=== PATIENT | female | born 1955 | race Caucasian/White ===

== ENCOUNTER 2017-12-16 18:20 | Emergency (ER) | payer OTHER ==
[2017-12-16 18:41] VITALS: BP 123/88; PULSE 72; TEMP 98.1; BMI 26.2
--- NOTE | 2017-12-16 19:14 | PDOC ---
History of Present Illness - General History Source: Patient Exam Limitations: No Limitations - History of Present Illness Initial Comments: 12/16/17 19:23 The patient is a 62 year old female with a significant past medical history of arthritis, hypertension, and kidney stones who presents to the emergency department for evaluation of headache, neck stiffness, and right knee pain. The patient reports intermittent episodes of moderate headache and right knee pain after walking into a clear glass door yesterday. The patient reports she felt stunned after colliding with the door, but denies any loss of consciousness. She reports associated right sided neck stiffness. The patient reports an associated symptom of nausea, but denies vomiting. She reports taking Motrin ( [id number]) every 4 hours, last taken at 5pm. Of note, the patient is currently taking Humira. The patient denies chest pain, shortness of breath, dizziness, fevers, chills, nausea, vomiting, diarrhea, and constipation. Denies any other kinds of injury. Allergies: NKDA Social history: Former smoker. No reported alcohol or drug use. PCP: Dr. Nate Quintana ([phone]) <Jazmyn Bliss - Last Filed: 12/16/17 19:24> <Austin Somers - Last Filed: 12/17/17 05:24> - General Chief Complaint: Injury Stated Complaint: WALKED INTO A GLASS WALL Past History <Jazmyn Bliss - Last Filed: 12/16/17 19:24> - Past Medical History COPD: No HTN: Yes Kidney Stones: Yes Psychiatric Problems: Yes - Family Disease History Family Disease History: Heart Disease: Father, Brother ([place] at age 47) - Suicide/Smoking/Psychosocial Hx Smoking Status: Yes Smoking History: Former smoker Have you smoked in the past 12 months: No Number of Cigarettes Smoked Daily: 0 If you are a former smoker, when did you quit?: 2016 Information on smoking cessation initiated: No 'Breaking Loose' booklet given: 02/07/15 Hx Alcohol Use: No Drug/Substance Use Hx: No Substance Use Type: None <Austin Somers - Last Filed: 12/17/17 05:24> - Past Medical History Allergies/Adverse Reactions: Allergies Allergy/AdvReac Type Severity Reaction Status Date / Time No Known Allergies Allergy Verified 12/16/17 18:31 Home Medications: Ambulatory Orders Adalimumab [Humira] 40 mg SQ ASDIR 08/01/15 Ibuprofen [Motrin Ib] 400 mg PO Q6H PRN 12/16/17 Review of Systems - Review of Systems Able to Perform ROS?: Yes Comments:: GENERAL/CONSTITUTIONAL: No fever or chills. No weakness. HEAD, EYES, EARS, NOSE AND THROAT: No change in vision. No ear pain or discharge. No sore throat. CARDIOVASCULAR: No chest pain or shortness of breath. RESPIRATORY: No cough, wheezing, or hemoptysis. GASTROINTESTINAL: (+)Nausea. No vomiting, diarrhea or constipation. GENITOURINARY: No dysuria, frequency, or change in urination. MUSCULOSKELETAL: (+)Right knee pain. (+)Neck stiffness. No joint or muscle swelling. No back pain. SKIN: No rash NEUROLOGIC: (+)Headache. No vertigo, loss of consciousness, or change in strength/sensation. ENDOCRINE: No increased thirst. No abnormal weight change. HEMATOLOGIC/LYMPHATIC: No anemia, easy bleeding, or history of blood clots. ALLERGIC/IMMUNOLOGIC: No hives or skin allergy. <Jazmyn Bliss - Last Filed: 12/16/17 19:24> *Physical Exam - Vital Signs Last Vital Signs Temp Pulse Resp BP Pulse Ox 98.1 F 72 16 123/88 99 12/16/17 18:26 12/16/17 18:26 12/16/17 18:26 12/16/17 18:26 12/16/17 18:26 - Physical Exam Comments: GENERAL: Awake, alert, and fully oriented, in no acute distress HEAD: (+)Tender on forehead. EYES: PERRLA, EOMI, sclera anicteric, conjunctiva clear ENT: Auricles normal inspection, hearing grossly normal, nares patent. NECK: Normal ROM, supple. LUNGS: Breath sounds equal, clear to auscultation bilaterally. No wheezes, and no crackles HEART: Regular rate and rhythm, normal S1 and S2, no murmurs, rubs or gallops ABDOMEN: Soft, nontender. No guarding, no rebound. No masses EXTREMITIES: (+)Tender on right medial proximal tibia. Normal range of motion, no edema. No clubbing or cyanosis. No cords or erythema. NEUROLOGICAL: Cranial nerves II through XII grossly intact. Normal speech, normal gait SKIN: Warm, Dry, normal turgor, no rashes or lesions noted. <Jazmyn Bliss - Last Filed: 12/16/17 19:24> - Vital Signs Last Vital Signs Temp Pulse Resp BP Pulse Ox 98.1 F 72 16 123/88 99 12/16/17 18:26 12/16/17 18:26 12/16/17 18:26 12/16/17 18:26 12/16/17 18:26 <Austin Somers - Last Filed: 12/17/17 05:24> Medical Decision Making - Medical Decision Making 12/17/17 05:23 head trauma--low risk by [place] criteria Some concussion symptoms. Symptomatic mgmt and neuro fu Knee contusion. NSAIDs <Austin Somers - Last Filed: 12/17/17 05:24> *DC/Admit/Observation/Transfer - Attestations Scribe Attestion: Documentation prepared by Jazmyn Bliss, acting as manager medical affairs for Austin Somers MD. <Jazmyn Bliss - Last Filed: 12/16/17 19:24> <Austin Somers - Last Filed: 12/17/17 05:24> Diagnosis at time of Disposition: Concussion Qualifiers: Encounter type: initial encounter Loss of consciousness presence/duration: without LOC Qualified Code(s): S06.0X0A - Concussion without loss of consciousness, initial encounter Head injury Qualifiers: Encounter type: initial encounter Qualified Code(s): S09.90XA - Unspecified injury of head, initial encounter Knee contusion Qualifiers: Encounter type: initial encounter Laterality: right Qualified Code(s): S80.01XA - Contusion of right knee, initial encounter - Discharge Dispostion Disposition: HOME Condition at time of disposition: Good - Referrals Referrals: Eliazar Edwards MD [Staff Physician] - Cristopher Arambula MD [Staff Physician] - - Patient Instructions Printed Discharge Instructions: DI for Closed Head Injury - Post Discharge Activity
== END 2017-12-16 19:23 | disposition home or self-care (01) ==
LOC: FER 18:20
DX: S09.90XA Unspecified injury of head, initial encounter (principal); S06.0X0A Concussion without loss of consciousness, initial encounter; S80.01XA Contusion of right knee, initial encounter; W22.01XA Walked into wall, initial encounter; Y93.89 Activity, other specified; Y92.9 Unspecified place or not applicable; I10 Essential (primary) hypertension; M19.90 Unspecified osteoarthritis, unspecified site; Z87.891 Personal history of nicotine dependence; F99 Mental disorder, not otherwise specified
CPT/HCPCS: 99282-25

== ENCOUNTER 2017-12-22 17:16 | Emergency (ER) | payer OTHER ==
[2017-12-22 17:25] VITALS: BP 146/85; PULSE 64; TEMP 98.3; BMI 26.2
--- NOTE | 2017-12-22 20:08 | PDOC ---
History of Present Illness - General History Source: Patient Exam Limitations: No Limitations - History of Present Illness Initial Comments: 12/22/17 20:31 The patient is a 62 year old female with past medical history of psoriatic arthritis, Kidney stones, and HTN presents to the emergency department s/p a fall. The patient reports around 10:30/11:00 in the morning she was walking outside when she lost balance and fell. The patient is unclear on the details of the incident but states she felt dizzy prior to the incident. The patient reports pain to the left knee, aggravated by flexion and extension of the leg. The patient reports associated symptoms of lightheadedness and a headache, mild relief with Motrin. The patient reports being at the ED 6 days ago s/p a head injury the day prior, the patient was told she sustained a concussions. The patient reports since the head injury the patients been experiencing episodes of intermittent dizziness and lightheadedness. The patient reports associated symptoms of nausea and right neck tenderness. The patient was seen by Dr. Joya who referred the patient to see a neurologist, patient states she hasn t made an appointment to see a neurologist yet. Denies any numbness, tingling or loss of sensation. Denies loss of conscious. Denies fever, chills, chest pain or cough. Allergies: NKDA Social history: Former smoker. No reported alcohol or drug use. PCP: Dr. Nate Quintana 12/22/17 21:42 <Cassidy Sanchez - Last Filed: 12/22/17 21:42> <Zari Osman - Last Filed: 12/23/17 03:51> - General Chief Complaint: Pain, Acute Stated Complaint: LEFT KNEE PAIN Time Seen by Provider: 12/22/17 19:30 Past History <Cassidy Sanchez - Last Filed: 12/22/17 21:42> - Past Medical History COPD: No DVT: No HTN: Yes Kidney Stones: Yes Psychiatric Problems: Yes - Family Disease History Family Disease History: Heart Disease: Father, Brother ([place] at age 47) - Suicide/Smoking/Psychosocial Hx Smoking Status: Yes Smoking History: Former smoker Have you smoked in the past 12 months: No Number of Cigarettes Smoked Daily: 1 If you are a former smoker, when did you quit?: 2016 Information on smoking cessation initiated: No 'Breaking Loose' booklet given: 02/07/15 Hx Alcohol Use: No Drug/Substance Use Hx: No Substance Use Type: None <Zari Osman - Last Filed: 12/23/17 03:51> - Past Medical History Allergies/Adverse Reactions: Allergies Allergy/AdvReac Type Severity Reaction Status Date / Time No Known Allergies Allergy Verified 12/22/17 17:19 Home Medications: Ambulatory Orders Adalimumab [Humira] 40 mg SQ ASDIR 08/01/15 Diclofenac Sodium [Voltaren -] 75 mg PO BID PRN #14 tablet. 12/22/17 Review of Systems - Review of Systems Able to Perform ROS?: Yes Comments:: 12/22/17 20:35 CONSTITUTIONAL: Absent: fever, no chills, no fatigue EYES: Absent: visual changes ENT: Absent: ear pain, no sore throat CARDIOVASCULAR: Absent: chest pain, no palpitations RESPIRATORY: Absent: cough, no SOB GI: Absent: abdominal pain, no nausea, no vomiting, no constipation, no diarrhea GENITOURINARY: Absent: dysuria, no frequency, no hematuria MUSKULOSKELETAL: (+)L. Knee injury with pain. Absent: back pain, no arthralgia, no myalgia SKIN: Absent: rash NEURO: (+) Headache and lightheadedness. <Cassidy Sanchez - Last Filed: 12/22/17 21:42> *Physical Exam - Vital Signs Last Vital Signs Temp Pulse Resp BP Pulse Ox 98.3 F 64 18 146/85 100 12/22/17 17:16 12/22/17 17:16 12/22/17 17:16 12/22/17 17:16 12/22/17 17:16 - Physical Exam Comments: 12/22/17 20:36 GENERAL: The patient is awake, alert, and fully oriented, in no acute distress. HEAD: Normal with no signs of trauma. EYES: Pupils equal, round and reactive to light, extraocular movements intact, sclera anicteric, conjunctiva clear with no pallor. ENT: Ears normal, nares patent, oropharynx clear without exudates. Moist mucous membranes. EXTREMITIES: (+) L. lateral tenderness to the anterior aspect of the knee w/o ligament instability. Point tenderness noted. No pain on stress maneuvers to the left knee. Rest of the extremity exams were normal. Normal range of motion, no edema. No clubbing or cyanosis. No cords, erythema, or tenderness. NEUROLOGICAL: Cranial nerves II through XII grossly intact. Normal speech. PSYCH: Normal mood, normal affect. SKIN: Warm, Dry, normal turgor, no rashes or lesions noted. <Cassidy Sanchez - Last Filed: 12/22/17 21:42> - Vital Signs Last Vital Signs Temp Pulse Resp BP Pulse Ox 98.3 F 64 18 146/85 100 12/22/17 17:16 12/22/17 17:16 12/22/17 17:16 12/22/17 17:16 12/22/17 17:16 <Zari Osman - Last Filed: 12/23/17 03:51> Medical Decision Making - Medical Decision Making Documentation has been prepared under my direction and personally reviewed by me in its entirety. I attest that this documented accurately reflects all work, treatment, procedures and medical decision making performed by me. As noted above, this 62-year-old woman presents with left knee pain after fall earlier today. Exam as noted. X-ray of the left knee shows no evidence of fracture or dislocation. Of note, patient has had intermittent lightheadedness since a fall 1 week ago. She also has had intermittent nausea and mild headache. Neuro exam showed no evidence of focal deficit. Patient did not have noncontrast head CT on initial presentation because she did not lose consciousness and had no serious symptoms. It was strongly advised the patient have noncontrast head CT during this ER visit but she refused. Since the patient is alert without focal neurologic deficits and trauma was one week ago, head CT would likely be low yield for subtle findings on imaging. She has been given neuro follow-up referral by her general medical doctor but has not yet made an appointment. Patient states that she will make an appointment tomorrow morning with . Meanwhile, knee immobilizer placed on the left lower extremity. She should follow-up with orthopedic group within the next 5-7 days. She does not have an orthopedist and referral information for the [facility] provided. Diclofenac 75 mg twice a day to be used as needed for pain and extremity should be elevated with knee iced for the next 2 days. <Zari Osman - Last Filed: 12/23/17 03:51> *DC/Admit/Observation/Transfer <DanielCassidy - Last Filed: 12/22/17 21:42> <Zari Osman Devi - Last Filed: 12/23/17 03:51> Diagnosis at time of Disposition: Left knee sprain Qualifiers: Encounter type: initial encounter Involved ligament of knee: lateral collateral ligament Qualified Code(s): S83.422A - Sprain of lateral collateral ligament of left knee, initial encounter - Discharge Dispostion Disposition: HOME Condition at time of disposition: Stable - Prescriptions Prescriptions: Diclofenac Sodium [Voltaren -] 75 mg PO BID PRN #14 tablet.dr WHITTEN Reason: Pain - Referrals Referrals: Cristopher Arambula MD [Staff Physician] - Call tomorrow Geovanni Morocho MD [Staff Physician] - Call tomorrow - Patient Instructions Printed Discharge Instructions: Knee Sprain Additional Instructions: Ice/elevation left knee for the next 48 hours Diclofenac 75 mg twice a day as needed for pain (take with food) Use knee immobilizer during the day until seen by orthopedist Follow-up with orthopedist([facility]) within the next week; call tomorrow Follow-up with neurologist() as previously advised; call tomorrow
== END 2017-12-22 20:27 | disposition home or self-care (01) ==
LOC: FER 17:16
DX: S83.422A Sprain of lateral collateral ligament of left knee, initial encounter (principal); W18.39XA Other fall on same level, initial encounter; Y93.89 Activity, other specified; Y92.9 Unspecified place or not applicable; I10 Essential (primary) hypertension; Z87.891 Personal history of nicotine dependence
CPT/HCPCS: 73562-TC-LT-FY; 99282-25

== ENCOUNTER 2018-07-08 20:03 | Observation (INO) | payer OTHER ==
--- NOTE | 2018-07-08 20:11 | PDOC ---
History of Present Illness - General History Source: Patient, Family Exam Limitations: No Limitations - History of Present Illness Initial Comments: 07/08/18 20:27 The patient is a 62 year old female presenting with family, presents to the ED complaining of a period of not being able to form new memories today. She reports that she felt fine till around 2pm today when she got of the phone with her son and was unable to remember the conversation. This lasted for a few hours , prompting her to come to the ED. She notes that she was able to remember things that she did throughout the day, such as wake up and eating lunch but it was that small period that she was unable to form new memories that worried her. She reports that she does have a mild headache on the left side of her forehead. She denies any radiation or modifying factors. She denies having a stressful day. The patient denies chest pain, shortness of breath, and dizziness. PAST MEDICAL HISTORY: psoriatic arthritis, Kidney stones, HTN, Anxiety and Depression PAST SURGICAL HISTORY: no significant history FAMILY HISTORY: Heart Disease: Father, Brother ([place] at age 47) SOCIAL HISTORY: Pt lives with family and is employed. MEDICATIONS: reviewed ALLERGIES: As per nursing notes General: No fevers or chills, no weakness, no weight loss HEENT: No change in vision. No sore throat,. No ear pain CardioVascular: No chest pain or shortness of breath Respiratory:No cough, or wheezing. Gastrointestinal: no nausea, vomiting, diarrhea or constipation, No rectal bleeding Genitourinary: No dysuria, hematuria, or frequency Musculoskeletal: No joint or muscle pain or swelling Neurologic: (+) Headache. No vertigo, dizziness or loss of consciousness Psychiatric: nor depression Skin: No rashes or easy bruising Endocrine: no increased thirst or abnormal weight change Allergic: no skin or latex allergy All other systems reviewed and normal General: Well-nourished well-developed individual, no acute distress HEENT: Throat: Normal, tonsils normal, no erythema or exudate Neck: Supple, no meningeal signs, no lymphadenopathy Eyes::Pupils equal reactive and round, extraocular motion intact Chest: Nontender to palpation Cardiac: S1-S2 normal, regular rate and rhythm, no murmurs rubs or gallops Respiratory: Lungs clear to auscultation bilateral Abdomen: Soft, nondistended, normal bowel sounds, nontender to palpation diffusely Extremities: Warm, dry, no cyanosis, clubbing, or edema Skin: No rashes Neuro: Alert and oriented x3, nonfocal exam, grossly intact, normal gait Psych: Normal mood and affect <Stalin Garcia - Last Filed: 07/08/18 20:27> - General History Source: Patient Exam Limitations: No Limitations - History of Present Illness Initial Comments: 07/08/18 20:38 A portion of this note was documented by scribe services under my direction. I have reviewed the details of the note, within reason, and agree with the documentation with the following case summary and management plan written by me. Patient treated in the ED. Nursing notes are reviewed and incorporated into the medical decision-making. Vital signs reviewed. Assessment and plan: This is a 62-year-old female who comes in complaining of 2 hour episode where she was unable to make new memories. Patient said she is now back to her baseline. Patient denies history of similar episodes in the past. Patient denies any associated migraine-type headache but does complain of a mild headache bilateral. Workup initiated including CBC, comp, head CT, EKG, chest x-ray. Chest x-ray is negative for any acute pathology. Chest x-ray reviewed by me EKG shows normal sinus rhythm at a rate of [address] acute [address]-T wave changes, normal EKG interpreted by me Head CT: Labs were normal including normal CBC and chemistries Patient will be admitted to an observation bed. 07/08/18 21:11 07/08/18 21:12 <Nestor Woodard I - Last Filed: 07/08/18 21:24> - General Stated Complaint: STATES SHE HAS DIFFICULTY REMEMBERING WHAT SHE DID Time Seen by Provider: 07/08/18 20:10 Past History <Stalin Garcia - Last Filed: 07/08/18 20:27> - Past Medical History COPD: No DVT: No HTN: Yes Kidney Stones: Yes Psychiatric Problems: Yes - Family Disease History Family Disease History: Heart Disease: Father, Brother ([place] at age 47) - Suicide/Smoking/Psychosocial Hx Smoking Status: Yes Smoking History: Former smoker Have you smoked in the past 12 months: No Number of Cigarettes Smoked Daily: 1 If you are a former smoker, when did you quit?: 2016 'Breaking Loose' booklet given: 02/07/15 Hx Alcohol Use: No Drug/Substance Use Hx: No Substance Use Type: None <Nestor Woodard I - Last Filed: 07/08/18 21:24> - Past Medical History Allergies/Adverse Reactions: Allergies Allergy/AdvReac Type Severity Reaction Status Date / Time No Known Allergies Allergy Verified 07/08/18 20:06 Home Medications: Ambulatory Orders Adalimumab [Humira] 60 mg SQ ASDIR 08/01/15 *Physical Exam - Vital Signs Last Vital Signs Temp Pulse Resp BP Pulse Ox 97.8 F 84 16 127/75 100 07/08/18 20:08 07/08/18 20:08 07/08/18 20:08 07/08/18 20:08 07/08/18 20:08 <Stalin Garcia - Last Filed: 07/08/18 20:27> NIH Stroke Scale - Last Known Well Date/Time & Onset Date Last Known Well: 07/08/18 Time Last Known Well: 19:00 - Initial Evaluation Level of consciousness: Alert Ask patient the month and their age: Answers both correctly Ask patient to open & close eyes; make fist and let go: Obeys both correctly Best gaze (horizontal eye movement): Normal Visual field testing: No visual field loss Facial paresis (Show teeth/raise eyebrows/close eyes tight): Normal symmetrical movement Motor Function: Left Arm: Normal Motor Function: Right Arm: Normal (extends arm 90 (or 45) degrees for 10 seconds without drift Motor Function: Left Leg: Normal (extends leg 30 degrees for 5 seconds without drift) Motor Function: Right Leg: Normal (extends leg 30 degrees for 5 seconds without drift) Limb Ataxia: No ataxia Sensory(Use pinprick test arms,legs,trunk,face/side to side): Normal Best language (Describe picture, name items, read sentences): No Aphasia Dysarthria (read several words): Normal articulation Extinction and Inattention: No abnormality - Total Score NIH Stroke Scale Score: 0 <Nestor Woodard I - Last Filed: 07/08/18 21:24> Moderate Sedation - Procedure Monitoring Vital Signs: Procedure Monitoring Vital Signs Temperature 97.8 F 07/08/18 20:08 Pulse Rate 84 07/08/18 20:08 Respiratory Rate 16 07/08/18 20:08 Blood Pressure 127/75 07/08/18 20:08 O2 Sat by Pulse Oximetry (%) 100 07/08/18 20:08 <Stalin Garcia - Last Filed: 07/08/18 20:27> *DC/Admit/Observation/Transfer - Attestations Scribe Attestion: 07/08/18 20:27 Documentation prepared by Stalin Garcia, acting as medical cash poster for Nestor Woodard MD <Stalin Garcia - Last Filed: 07/08/18 20:27> - Discharge Dispostion Decision to Admit order: Yes <Nestor Woodard I - Last Filed: 07/08/18 21:24> Diagnosis at time of Disposition: TIA (transient ischemic attack) - Discharge Dispostion Condition at time of disposition: Stable - Referrals Referrals: Nate Quintana MD [Primary Care Provider] - - Patient Instructions - Post Discharge Activity
[2018-07-08 20:54] LABS: BASO % 0.3 % (0-2.0); EOS % 1.9 % (0-4.5); HEMATOCRIT 41.6 % (32.4-45.2); HEMOGLOBIN 13.6 GM/dl (10.7-15.3); LYMPH % 30.9 % (8-40); MCH 28.6 pg (25.7-33.7); MCHC 32.7 g/dl (32.0-36.0); MEAN CELL VOLUME 87.4 fl (80-96); MONO % 10.5 % (3.8-10.2); NEUT % 56.4 % (42.8-82.8); PLATELET COUNT 237 K/MM3 (134-434); RBC 4.76 M/mm3 (3.60-5.2); RDW 13.2 % (11.6-15.6); WHITE BLOOD COUNT 5.6 K/mm3 (4.0-10.8)
[2018-07-08 21:05] LABS: ALBUMIN 4.1 g/dl (3.5-5.0); ALK PHOS 86 U/L (32-92); ANION GAP 9 MMOL/L (8-16); BILIRUBIN,TOTAL 0.5 mg/dl (0.2-1.0); BLOOD UREA NITROGEN 21 mg/dl (7-18); CALCIUM 8.8 mg/dl (8.4-10.2); CHLORIDE 98 mmol/L (98-107); CO2 29 mmol/L (22-28); GLUCOSE,RANDOM 95 mg/dl (74-106); POTASSIUM 3.6 mmol/L (3.5-5.1); SGOT/AST 23 U/L (10-42); SGPT/ALT 17 U/L (10-40); SODIUM 136 mmol/L (136-145); TOT PROT 7.6 g/dl (6.4-8.3)
[2018-07-08 21:19] LABS: INR 0.97 (0.82-1.09); PROTHROMBIN TIME (PATIENT) 10.9 SEC (10.2-13.0)
--- NOTE | 2018-07-08 22:12 | HP ---
CHIEF COMPLAINT: Headache, Memory Impairment PCP: Dr. Nate Quintana HISTORY OF PRESENT ILLNESS: This is a 62 y/o woman with a PMHx of: Psoriatic Arthritis, HTN, Anxiety, Depression, Renal Calculi, Cervical Disc Disease. Who presents to the ED with memory impairment, repetitive speech, and FINN x this evening. Patient reports last feeling well at 14:00. Patient reports while speaking to her son she began to have memory impairment, not being able to finish her thoughts. She states" my son told me I keep repeating myself". Patient denies fever, chills, cough, dizziness, SOB, CP, palpitations, AP, N/V/D, constipation, dysuria ER course was notable for: (1) Head CT- neg ICH (2) EKG - NSR no ST or TWI (3) Chest Xray- no acute pathology Recent Travel: None PAST MEDICAL HISTORY: See HPI PAST SURGICAL HISTORY: Childbirth Social History: Smoking: Former Alcohol: None Drugs: None Lives with family, self-employed Family History: Father: [place] Brother: [place] Allergies No Known Allergies Allergy (Verified 07/08/18 20:06) HOME MEDICATIONS: Home Medications Medication Instructions Recorded Adalimumab [Humira] 60 mg SQ ASDIR 08/01/15 REVIEW OF SYSTEMS CONSTITUTIONAL: Absent: fever, chills, diaphoresis, generalized weakness, malaise, loss of appetite, weight change HEENT: Absent: rhinorrhea, nasal congestion, throat pain, throat swelling, difficulty swallowing, mouth swelling, ear pain, eye pain, visual changes CARDIOVASCULAR: Absent: chest pain, syncope, palpitations, irregular heart rate, lightheadedness , peripheral edema RESPIRATORY: Absent: cough, shortness of breath, dyspnea with exertion, orthopnea, wheezing, stridor, hemoptysis GASTROINTESTINAL: Absent: abdominal pain, abdominal distension, nausea, vomiting, diarrhea, constipation, melena, hematochezia GENITOURINARY: Absent: dysuria, frequency, urgency, hesitancy, hematuria, flank pain, genital pain MUSCULOSKELETAL: Absent: myalgia, arthralgia, joint swelling, back pain, neck pain SKIN: Absent: rash, itching, pallor HEMATOLOGIC/IMMUNOLOGIC: Absent: easy bleeding, easy bruising, lymphadenopathy, frequent infections ENDOCRINE: Absent: unexplained weight gain, unexplained weight loss, heat intolerance, cold intolerance NEUROLOGIC: headache, memory impairment Absent: focal weakness or paresthesias, dizziness, unsteady gait, seizure, bladder or bowel incontinence PSYCHIATRIC: Absent: anxiety, depression, suicidal or homicidal ideation, hallucinations. PHYSICAL EXAMINATION Vital Signs - 24 hr 07/08/18 07/08/18 20:08 21:58 Temperature 97.8 F 97.8 F Pulse Rate 84 Pulse Rate [ 68 Left] Respiratory 16 16 Rate Blood Pressure 127/75 Blood Pressure 147/78 [Left] O2 Sat by Pulse 100 98 Oximetry (%) GENERAL: Awake, alert, and fully oriented, in no acute distress. HEAD: Normal with no signs of trauma. EYES: Pupils equal, round and reactive to light, extraocular movements intact, sclera anicteric, conjunctiva clear. No lid lag. EARS, NOSE, THROAT: Ears normal, nares patent, oropharynx clear without exudates. Moist mucous membranes. NECK: Normal range of motion, supple without lymphadenopathy, JVD, or masses. LUNGS: Breath sounds equal, clear to auscultation bilaterally. No wheezes, and no crackles. No accessory muscle use. HEART: Regular rate and rhythm, normal S1 and S2 without murmur, rub or gallop. ABDOMEN: Soft, nontender, not distended, normoactive bowel sounds, no guarding, no rebound, no masses. No hepatomegaly or splenomegaly. MUSCULOSKELETAL: Normal range of motion at all joints. No bony deformities or tenderness. No CVA tenderness. UPPER EXTREMITIES: 2+ pulses, warm, well-perfused. No cyanosis. No clubbing. No peripheral edema. LOWER EXTREMITIES: 2+ pulses, warm, well-perfused. No calf tenderness. No peripheral edema. NEUROLOGICAL: Cranial nerves II-XII intact. Normal speech. Normal gait. PSYCHIATRIC: Cooperative. Good eye contact. Appropriate mood and affect. SKIN: Warm, dry, normal turgor, no rashes or lesions noted, normal capillary refill. Laboratory Results - last 24 hr 07/08/18 07/08/18 07/08/18 20:23 20:32 20:32 WBC 5.6 RBC 4.76 Hgb 13.6 Hct 41.6 MCV 87.4 MCH 28.6 MCHC 32.7 RDW 13.2 Plt Count 237 MPV 9.0 Absolute Neuts (auto) 3.2 Neutrophils % 56.4 Lymphocytes % 30.9 Monocytes % 10.5 H Eosinophils % 1.9 Basophils % 0.3 PT with INR INR Sodium 136 Potassium 3.6 D Chloride 98 Carbon Dioxide 29 H Anion Gap 9 BUN 21 H Creatinine 1.0 Creat Clearance w eGFR 56.56 Random Glucose 95 D Calcium 8.8 Total Bilirubin 0.5 AST 23 D ALT 17 D Alkaline Phosphatase 86 Creatine Kinase Creatine Kinase Index CK-MB (CK-2) Troponin I < 0.03 Total Protein 7.6 Albumin 4.1 07/08/18 07/08/18 20:32 20:45 WBC RBC Hgb Hct MCV MCH MCHC RDW Plt Count MPV Absolute Neuts (auto) Neutrophils % Lymphocytes % Monocytes % Eosinophils % Basophils % PT with INR 10.9 INR 0.97 Sodium Potassium Chloride Carbon Dioxide Anion Gap BUN Creatinine Creat Clearance w eGFR Random Glucose Calcium Total Bilirubin AST ALT Alkaline Phosphatase Creatine Kinase 212 H Creatine Kinase Index 1.1 CK-MB (CK-2) 2.4 Troponin I Total Protein Albumin ASSESSMENT/PLAN: This is a 62 y/o woman with a PMHx of: Psoriatic Arthritis, HTN, Anxiety, Depression, Renal Calculi. Placed in Tele Observation for TIA for further evaluation of their emergent condition. Plan: FEN PO fluids as tolerated Replete lytes prn Low Na Diet DVT ppx OOB SCDs Consider AC if LOS > 48 hrs Dispo: Observation Problem List - Problem (1) TIA (transient ischemic attack) Assessment/Plan: r/o TIA/CVA vs Seizures vs Transient Amnesia Head CT- neg ICH NIHSS 0 Continue cardiac monitoring Appreciate Neurology consult Carotid Doppler in am CBC, BMP, Lipid Panel, TSH in am Swallow Eval Consider MRI Brain, will defer to Neurology Neuro checks Seizure Precautions Fall Precautions Code(s): G45.9 - TRANSIENT CEREBRAL ISCHEMIC ATTACK, UNSPECIFIED (2) HTN (hypertension) Assessment/Plan: Stable Monitor BP Continue home med Monitor renal function Low Na Diet Code(s): I10 - ESSENTIAL (PRIMARY) HYPERTENSION (3) Anxiety and depression Assessment/Plan: Stable Continue Cymbalta Code(s): F41.9 - ANXIETY DISORDER, UNSPECIFIED; F32.9 - MAJOR DEPRESSIVE DISORDER, SINGLE EPISODE, UNSPECIFIED (4) Psoriatic arthritis Assessment/Plan: Stable Patient may use her own Humira inj, due today Code(s): L40.50 - ARTHROPATHIC PSORIASIS, UNSPECIFIED Visit type - Emergency Visit Emergency Visit: Yes ED Registration Date: 07/08/18 Care time: The patient presented to the Emergency Department on the above date and was hospitalized for further evaluation of their emergent condition. - New Patient This patient is new to me today: Yes Date on this admission: 07/08/18 - Critical Care Critical Care patient: No
[2018-07-08 22:14] LABS: PH,URINE 7.5 (4.5-8); URINE APPEARANCE Clear; URINE BILIRUBIN Negative (NEGATIVE); URINE COLOR Yellow; URINE GLUCOSE (UA) Negative (NEGATIVE); URINE KETONE Negative (NEGATIVE); URINE LEUK ESTERASE Negative (NEGATIVE); URINE NITRITE Negative (NEGATIVE); URINE PROTEIN Negative (NEGATIVE); URINE UROBILINOGEN 0.2 (0.2-1.0)
[2018-07-08 23:45] VITALS: BMI 25.8
[2018-07-09] MEDS ORDERED: ADALIMUMAB SQ SCH (01:15)
[2018-07-09 06:34] VITALS: BP 117/60; PULSE 69; TEMP 98.3
[2018-07-09 09:29] LABS: ANION GAP 9 MMOL/L (8-16); BLOOD UREA NITROGEN 17 mg/dl (7-18); CALCIUM 8.7 mg/dl (8.4-10.2); CHLORIDE 100 mmol/L (98-107); CO2 28 mmol/L (22-28); CREATININE 0.9 mg/dl (0.6-1.3); GLUCOSE,RANDOM 113 mg/dl (74-106); MAGNESIUM 2.3 mg/dL (1.8-2.4); PHOSPHOROUS 4.5 mg/dl (2.5-4.6); POTASSIUM 3.4 mmol/L (3.5-5.1); SODIUM 137 mmol/L (136-145)
[2018-07-09 09:39] LABS: BASO % 0.3 % (0-2.0); EOS % 3.1 % (0-4.5); HEMATOCRIT 39.7 % (32.4-45.2); HEMOGLOBIN 13.1 GM/dl (10.7-15.3); LYMPH % 31.8 % (8-40); MCH 28.5 pg (25.7-33.7); MCHC 33.1 g/dl (32.0-36.0); MEAN CELL VOLUME 86.2 fl (80-96); MEAN PLT VOLUME 9.7 fl (7.5-11.1); MONO % 10.7 % (3.8-10.2); NEUT % 54.1 % (42.8-82.8); PLATELET COUNT 191 K/MM3 (134-434); RDW 12.9 % (11.6-15.6)
[2018-07-09 09:46] LABS: CHOLESTEROL 235 mg/dl; HDL CHOLESTEROL 62 mg/dl (29-89); TRIGLYCERIDES 129 mg/dl (35-160)
[2018-07-09] MEDS ORDERED: DULoxetine HCL 30 MG CAPSULE.DR (FP) PO SCH (10:00)
[2018-07-09] MEDS ORDERED: TRIAMTERENE AND HCTZ - 37.5 MG/25 MG CAPSULE PO SCH (10:00)
[2018-07-09 10:14] LABS: INR 1.02 (0.82-1.09); PROTHROMBIN TIME (PATIENT) 11.4 SEC (10.2-13.0)
[2018-07-09 10:42] LABS: LDL CHOLESTEROL (ONLY DFH) 147 mg/dl (0-100)
--- NOTE | 2018-07-09 13:18 | CONSULT ---
Consult - text type - Consultation Consultation Note: NEUROLOGY CONSULTATION is greatly appreciated: This 62 yo RH woman with h/o HTN, depression and Rheumatoid arthritis ( followed by Dr. Deb Garber) is maintained on Humira, HCTZ, trimapterine and cymbalta. Seen by me many years ago for recurrent complaints of "burning and hypersensitivity" in her head moving from side to side. This would occur a few times each month and last 1-2 days. Occ nausea, photophobia. + FH of migraines in her mother. Many years of difficulty sleeping with numbness and aching pains in feet, knees and ankles attributed to arthritisbut not improved on Humira and other treatments. Improved by walking. AM stiffness x 1 hr improved by activity. More recently stiffness and "throbbing" in both hands contributes to sleep difficulties. Yesterday was in [facility] and went out at 10:30 to do errands the precise details of which she recalls today. She arrived home at 2:30 and recalls exactly what she had at lunch. In the afternoon she had a left sided headache and "just wanted to go to bed." Around 4:30 her son called and she could not recall what she did earlier in the day. Today, she can recall and describe the conversation. When her came home and heard this he grew concerned and brought patient to the ED. CT of head (reviewed): Normal Labs: Normal Today the patient feels fine without memory complaints. Family agrees she is fine. BRITTANY: No bruits. Cor reg NEURO: MS/speech: Normal CN II-XII: Normal Motor: No drift or tremor. Normal strength, tone bulk and reflexes. Toes downgoing. +Periodic mov'ts of feet and toes Coord: No FTN dystaxia Sensory: Normal. Romberg neg Gait: Normal IMP: Normal neurological exam Migraine headaches. Yesterday, patient became distracted with a left hemicranial headache. 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 R/O Carpal tunnel, PN, etc. SUGGEST: OK for discharge Neuro f/u for EEG, Headache monitoring and Rx of RLS. Thank you very much, Jose M Parker MD
--- NOTE | 2018-07-09 13:30 | DS ---
Physical Examination Vital Signs: Vital Signs Temperature 98.3 F 07/09/18 06:00 Pulse Rate 69 07/09/18 06:00 Respiratory Rate 18 07/09/18 06:00 Blood Pressure 117/60 07/09/18 06:00 O2 Sat by Pulse Oximetry (%) 97 07/09/18 06:00 Findings/Remarks: Physical Exam: General: NAD, A&Ox3 Lungs: CTA bilaterally Heart: RRR, S1S2 Abd: Soft, non-tender, non-distended. Normoactive bowel sounds Neuro: No focal deficits Labs: CBC, BMP 07/09/18 08:00 07/09/18 08:00 Discharge Summary Reason For Visit: TRANSIENT ISCHEMIC ATTACK Current Active Problems Anxiety and depression (Acute) HTN (hypertension) (Acute) Psoriatic arthritis (Acute) TIA (transient ischemic attack) (Acute) Hospital Course: This is a 62 year old female with PMHx of HTN, depression, rheumatoid arthritis who presented to the ED with memory impairment and headache. Today the patient is able to recall all events and conversations from yesterday. The patient was seen by Dr. Parker (neurology) who recommended discharge home with follow-up in the office for EEG, headache monitoring, and Rx for RLS. Discussed with Dr. Parker who states no evidence of TGA. Likely symptoms 2/2 headache. The patient was given return precautions and sent home. Condition: Improved - Instructions Diet, Activity, Other Instructions: Please return to the ED with new, persistent, or worsening symptoms. Please follow-up with providers as indicated. Referrals: Nate Quintana MD [Primary Care Provider] - 1 Week Jose M Parker MD [Staff Physician] - (Please call Dr. Parker's office tomorrow to schedule a follow-up appointment to be seen within 1 week for an outpatient EEG and headache monitoring as well as further testing for restless limb syndrome. ) Disposition: HOME - Home Medications Comprehensive Discharge Medication List: Ambulatory Orders Adalimumab [Humira] 60 mg SQ ASDIR 08/01/15 This patient is new to me today: Yes Date on this admission: 07/09/18 Emergency Visit: Yes ED Registration Date: 07/08/18 Care time: The patient presented to the Emergency Department on the above date and was hospitalized for further evaluation of their emergent condition. Critical Care patient: No - Discharge Referral Referred to [facility] No
[2018-07-09] MEDS ORDERED: POTASSIUM CHLORIDE TABS 20 MEQ TABLET.ER (FP) PO ONE (14:00)
--- NOTE | 2018-07-10 07:18 | EKG ---
Test Reason : Blood Pressure : / mmHG Vent. Rate : 072 BPM Atrial Rate : 072 BPM P-R Int : 184 ms QRS Dur : 092 ms QT Int : 416 ms P-R-T Axes : 015 028 018 degrees QTc Int : 455 ms NORMAL SINUS RHYTHM NORMAL ECG NO PREVIOUS ECGS AVAILABLE Confirmed by ALYCE PALACIO MD ([id number]) on 07/10/2018 7:18:09 AM Referred By: MICHELLE SELF Confirmed By:ALYCE PALACIO MD
== END 2018-07-09 14:27 | disposition home or self-care (01) ==
LOC: FER 20:03 → INTOOBSV 21:24 → FM/S 21:24
PROVIDERS: ADMIT Internal Medicine; ATTEND Registered Nurse
DX: G45.9 Transient cerebral ischemic attack, unspecified (principal); I10 Essential (primary) hypertension; F41.9 Anxiety disorder, unspecified; F32.9 Major depressive disorder, single episode, unspecified; L40.50 Arthropathic psoriasis, unspecified
CPT/HCPCS: 36415; 70450-TC; 71045-TC-FY; 80048; 80053; 80061; 81003; 82550; 82553; 83036; 83735; 84100; 84443; 84484; 85025; 85610; 93005; 99283-25; G0378

== ENCOUNTER 2020-02-12 10:23 | Inpatient (IN) | payer OTHER ==
[2020-02-12] MEDS ORDERED: SODIUM CHLORIDE 500 ML IV ONE (10:34)
--- NOTE | 2020-02-12 11:05 | PDOC ---
History of Present Illness - General Chief Complaint: Altered Mental Status Stated Complaint: CONFUSION Time Seen by Provider: 02/12/20 10:31 History Source: Patient, Family Exam Limitations: No Limitations - History of Present Illness Initial Comments: 02/12/20 11:03 64-year-old female with history of hypertension, anxiety/depression, psoriatic arthritis brought in by family for episode of confusion/memory loss. Patient was in usual state of good health when she awoke this morning, was last seen normal around 9 AM when her left for work, the patient recalls being outside in the pool house and becoming diaphoretic and confused, called her who arrived there around 930, brought to the emergency department and gradually improving. Patient denies any headache/vision change/speech change/nausea/vomiting/focal weakness, no chest pain/palpitations/shortness of breath, no recent infectious or dehydration complaints. The patient has no physical complaints at this time, feels like her mental status is improving, but still has some gaps in memory in terms of exactly what happened prior to arrival. Patient has no recollection of similar prior events, however on review of the medical record there was an almost identical admission on 07/08/2018, work-up including neurology consultation at that time was unremarkable and the patient was discharged to follow-up for EEG as outpatient. 02/12/20 11:17 subsequent history from : Pt was outside when he left for work. He was concerned at the time that she was sweating from the heat. Pt called him around 9:30am, was speaking clearly and with normal words but wasn't making sense (where are you? who put this here?). he went home and found her on the couch alert and responsive, brought to ED. Pt did mention to him that she had a headache when they left to come to the ED. tPA Exclusion Checklist 0-3hr - Thrombolytic Therapy Candidate Is the patient eligible for Thrombolytic Therapy?: No - Relative Exclusion Criteria 0-3h Stroke severity too mild (non-disabling): Yes - Ineligibility reason(s) Reasons No tPA given: Outside of window - delayed arrival NIH Stroke Scale - Last Known Well Date/Time & Onset Date Last Known Well: 02/12/20 Time Last Known Well: 09:00 - Initial Evaluation Level of consciousness: Alert Ask patient the month and their age: Answers both correctly Ask patient to open & close eyes; make fist and let go: Obeys both correctly Best gaze (horizontal eye movement): Normal Visual field testing: No visual field loss Facial paresis (Show teeth/raise eyebrows/close eyes tight): Normal symmetrical movement Motor Function: Left Arm: Normal Motor Function: Right Arm: Normal (extends arm 90 (or 45) degrees for 10 seconds without drift Motor Function: Left Leg: Normal (extends leg 30 degrees for 5 seconds without drift) Motor Function: Right Leg: Normal (extends leg 30 degrees for 5 seconds without drift) Limb Ataxia: No ataxia Sensory(Use pinprick test arms,legs,trunk,face/side to side): Normal Best language (Describe picture, name items, read sentences): No Aphasia Dysarthria (read several words): Normal articulation Extinction and Inattention: No abnormality - Total Score NIH Stroke Scale Score: 0 Past History - Medical History Allergies/Adverse Reactions: Allergies Allergy/AdvReac Type Severity Reaction Status Date / Time No Known Allergies Allergy Verified 07/08/18 20:06 Home Medications: Ambulatory Orders Adalimumab [Humira Pen] 60 mg SQ ASDIR 08/01/15 Acetaminophen [Tylenol .Regular Strength -] 650 mg PO Q4H PRN tablet 02/14/20 Aspirin [ASA -] 81 mg PO DAILY tab.chew 02/14/20 Atorvastatin Ca [Lipitor] 40 mg PO HS #30 tablet 02/14/20 Lisinopril [Prinivil] 2.5 mg PO DAILY #30 tablet 02/14/20 COPD: No DVT: No HTN: Yes Kidney Stones: Yes Psychiatric Problems: Yes Other medical history: PSORIATIC ARTHRITIS - Psycho-Social/Smoking History Smoking Status: Yes Smoking History: Former smoker Have you smoked in the past 12 months: No Number of Cigarettes Smoked Daily: 1 If you are a former smoker, when did you quit?: 2016 Information on smoking cessation initiated: No 'Breaking Loose' booklet given: 02/07/15 - Substance Abuse Hx (Audit-C & DAST Scrn) How often the patient has a drink containing alcohol: Never Score: In Men: 4 or > Positive; In Women: 3 or > Positive: 0 Screen Result (Pos requires Nsg. Audit-10AR): Negative In the last yr the pt used illegal drug/Rx for NonMed reason: No Score: Yes response is considered Positive: 0 Screen Result (Positive result requires Nsg. DAST-10): Negative Review of Systems - Review of Systems Able to Perform ROS?: Yes Constitutional: No: Chills, Fever, Night Sweats HEENTM: No: Eye Pain, Blurred Vision Respiratory: No: Cough, Shortness of Breath Cardiac (ROS): No: Chest Pain, Lightheadedness, Palpitations ABD/GI: No: Nausea, Vomiting : No: Burning, Dysuria Neurological: Yes: See HPI. No: Headache, Weakness All Other Systems: Reviewed and Negative *Physical Exam - Vital Signs Last Vital Signs Temp Pulse Resp BP Pulse Ox 98.7 F 82 20 158/95 100 02/12/20 10:24 02/12/20 10:24 02/12/20 10:24 02/12/20 10:24 02/12/20 10:24 - Physical Exam 02/12/20 11:06 Vital signs stable, afebrile GENERAL: The patient is awake, alert, oriented to self/place/time (hesitates then says January), in no acute distress other than slightly tearful. HEAD: Normal with no signs of trauma. EYES: PERRL, EOMI, sclera anicteric, conjunctiva clear with no pallor. ENT: Oropharynx clear without exudates. Moist mucous membranes. NECK: Normal range of motion, supple without lymphadenopathy, JVD, or masses. LUNGS: Breath sounds equal, clear to auscultation bilaterally. No wheeze/crackles. HEART: Regular rate and rhythm, normal S1 and S2 without murmur or rub. ABDOMEN: Soft/nontender/nondistended. BS wnl. No guarding or rebound. No palpable masses. No hepatosplenomegaly. EXTREMITIES: Normal range of motion, no edema. 2+ distal pulses. No cords, erythema, or tenderness. NEUROLOGICAL: Mental status: The patient is alert and oriented x3. Cranial nerves: Cranial nerves II through XII are intact Motor: The upper extremities are 5 over 5 in all muscle groups. The lower extremities are 5 over 5 in all muscle groups. No pronator drift. Sensation: Sensation is intact to light touch throughout. Cerebellar: Ktdede-[id number]-jkzy is normal in both upper extremities. Qdbf-lnmo-cbov is normal in both lower extremities. Reflexes: 2+ and symmetric in the upper and lower extremities. Gait: Normal. Heel and toe walking are normal. Tandem gait is normal. PSYCH: Tearful but otherwise normal mood, normal affect. SKIN: Warm, Dry, no rashes or lesions noted. Heart Score/ECG Review #1 ECG reviewed & interpreted by me at: 10:59 General ECG Interpretation: Sinus Rhythm, Normal Rate (71), Normal Intervals (qtc 462), No acute ischemic changes Compared to previous ECG there are: No significant change (c/w 07/08/18) ED Treatment Course - LABORATORY CBC & Chemistry Diagram: 02/13/20 07:37 02/13/20 07:37 - RADIOLOGY Radiology Studies Ordered: Category Date Time Status HEAD CT WITHOUT CONTRAST [CT] Stat CT Scan 02/12/20 10:34 Taken Medical Decision Making - Critical Care Time Total Critical Care Time (minutes): 30 Critical Care Statement: The care of this patient involved high complexity decision making to prevent further life threatening deterioration of the patient's condition and/or to evaluate & treat vital organ system(s) failure or risk of failure. - Medical Decision Making 02/12/20 11:08 64-year-old female with history of hypertension and psoriatic arthritis presents with episode of altered mental status/forgetfulness, now improving and without any associated focal neurological deficits. Vital signs are stable, no associated headache, no other complaints. Similar to prior presentation in 2018, at that time TGA versus TIA versus seizure were considered. Differential is similar, consider heat exhaustion/stroke given very hot conditions outside today, rule out infectious process versus metabolic abnormality versus cardiac event. Stat CT head Labs, urinalysis, EKG IV fluids Monitoring and reassessment 02/12/20 11:53 labs, ct, ekg wnl including trop. UA, CXR pending. Pt feels better, still slightly generally weak. Will monitor on tele for recurrence. 02/12/20 12:41 accepted for tele obs by Dr. Harper, signout given to DESHAUN Brady. Will consider neuro consultation and MRI during admission. Discharge - Discharge Information Problems reviewed: Yes Clinical Impression/Diagnosis: Transient alteration of awareness Condition: Fair Disposition: HOME - Admission Yes - Follow up/Referral - Patient Discharge Instructions - Post Discharge Activity
[2020-02-12 11:30] LABS: BASO % 0.7 % (0-2.0); EOS % 1.9 % (0-4.5); HEMATOCRIT 39.4 % (32.4-45.2); HEMOGLOBIN 13.4 GM/dl (10.7-15.3); LYMPH % 28.2 % (8-40); MCH 29.5 pg (25.7-33.7); MCHC 34.1 g/dl (32.0-36.0); MEAN CELL VOLUME 86.6 fl (80-96); MEAN PLT VOLUME 9.4 fl (7.5-11.1); MONO % 10.6 % (3.8-10.2); NEUT % 58.6 % (42.8-82.8); PLATELET COUNT 175 K/MM3 (134-434); RBC 4.55 M/mm3 (3.60-5.2); RDW 12.2 % (11.6-15.6); WHITE BLOOD COUNT 4.2 K/mm3 (4.0-10.8)
[2020-02-12 11:31] LABS: ACTIVATED PTT 30.8 SECONDS (25.2-36.5)
[2020-02-12 11:36] LABS: INR 1.03 (0.82-1.09); PROTHROMBIN TIME (PATIENT) 11.5 SEC (10.2-13.0)
[2020-02-12 11:38] LABS: ALBUMIN 4.3 g/dl (3.4-5.0); CALCIUM 8.8 mg/dl (8.5-10); POTASSIUM 3.2 mmol/L (3.5-5.1); TOT PROT 7.4 g/dl (6.4-8.2)
[2020-02-12] MEDS ORDERED: ACETAMINOPHEN 325 MG TABLET (FP) PO PRN (12:42)
[2020-02-12] MEDS ORDERED: D5-LR+20 MEQ KCL - 20 MEQ/1,000 ML INFUS.BAG IV SCH (12:45)
[2020-02-12] MEDS ORDERED: POTASSIUM CHLORIDE TABS 10 MEQ TABLET.ER (FP) PO ONE (13:00)
[2020-02-12] MEDS ORDERED: D5-1/2NS+20 MEQ KCL - 20 MEQ/1,000 ML INFUS.BAG IV SCH (15:00)
[2020-02-12 16:16] VITALS: BMI 28.0
--- NOTE | 2020-02-12 18:31 | HP ---
Admitting History and Physical - Past Medical History Cardiovascular: Yes: HTN ...: No Rheumatology: Yes: Other (psoriatic arthritis) - Smoking History Smoking history: Former smoker Have you smoked in the past 12 months: No Aproximately how many cigarettes per day: 1 If you are a former smoker, when did you quit?: 2016 - Alcohol/Substance Use Hx Alcohol Use: No Home Medications - Allergies Allergies/Adverse Reactions: Allergies Allergy/AdvReac Type Severity Reaction Status Date / Time No Known Allergies Allergy Verified 07/08/18 20:06 - Home Medications Home Medications: Ambulatory Orders Adalimumab [Humira Pen] 60 mg SQ ASDIR 08/01/15 Physical Examination Vital Signs: Vital Signs Temperature 97.7 F 02/12/20 15:50 Pulse Rate 70 02/12/20 15:50 Respiratory Rate 18 02/12/20 15:50 Blood Pressure 129/64 02/12/20 15:50 O2 Sat by Pulse Oximetry (%) 99 02/12/20 16:00 Constitutional: Yes: Well Nourished, No Distress, Calm HENT: Yes: Atraumatic Cardiovascular: Yes: Regular Rate and Rhythm Respiratory: Yes: Regular, CTA Bilaterally Gastrointestinal: Yes: Normal Bowel Sounds, Soft Edema: No Neurological: Yes: Alert, Oriented. No: Facial Droop, Tremors Labs: CBC, BMP 02/12/20 11:11 02/12/20 11:11 Imaging - Results Cat Scan: Report Reviewed Problem List - Problems (1) Transient alteration of awareness Assessment/Plan: MRI OF HEAD FOLLOW LABS NEURO CONSULT Code(s): R40.4 - TRANSIENT ALTERATION OF AWARENESS (2) HTN (hypertension) Assessment/Plan: MONITOR OFF MEDS Code(s): I10 - ESSENTIAL (PRIMARY) HYPERTENSION (3) Psoriatic arthritis Code(s): L40.50 - ARTHROPATHIC PSORIASIS, UNSPECIFIED
[2020-02-12 20:27] LABS: CALCIUM 8.2 mg/dl (8.5-10); CREATININE 1.1 mg/dl (0.55-1.3); MAGNESIUM 2.2 mg/dL (1.8-2.4); POTASSIUM 3.8 mmol/L (3.5-5.1)
[2020-02-12] MEDS: DULoxetine HCL 30 MG CAPSULE.DR PO SCH (21:16)
--- NOTE | 2020-02-13 07:20 | PN ---
Progress Note, Physician - Current Medication List Current Medications: Active Medications Acetaminophen (Tylenol -) 650 mg PO Q4H PRN PRN Reason: PAIN Duloxetine HCl (Cymbalta -) 60 mg PO HS [facility] Last Admin: 02/12/20 21:16 Dose: 60 mg Documented by: Potassium Chloride/Dextrose/Sod Cl (D5-1/2ns+20 Meq Kcl -) 20 meq in 1,000 mls @ 75 mls/hr IV ASDIR [facility] Last Admin: 02/12/20 16:22 Dose: 75 mls/hr Documented by: Lisinopril (Prinivil) 2.5 mg PO DAILY [facility] - Objective Vital Signs: Vital Signs Temperature 98.9 F 02/13/20 06:40 Pulse Rate 67 02/13/20 06:40 Respiratory Rate 18 02/13/20 06:40 Blood Pressure 118/62 02/13/20 06:40 O2 Sat by Pulse Oximetry (%) 99 02/13/20 06:40 Neck: Yes: Supple Cardiovascular: Yes: Regular Rate and Rhythm Respiratory: Yes: Regular, CTA Bilaterally Gastrointestinal: Yes: Normal Bowel Sounds, Soft. No: Tenderness Neurological: Yes: Alert, Oriented Labs: CBC, BMP 02/12/20 11:11 02/12/20 20:00 INR, PTT INR 1.03 (0.82-1.09) 02/12/20 11:13 Problem List - Problems (1) Transient alteration of awareness Assessment/Plan: MRI OF HEAD FOLLOW LABS NEURO CONSULT Code(s): R40.4 - TRANSIENT ALTERATION OF AWARENESS (2) HTN (hypertension) Assessment/Plan: MONITOR On altace 2.5 Code(s): I10 - ESSENTIAL (PRIMARY) HYPERTENSION (3) Psoriatic arthritis Code(s): L40.50 - ARTHROPATHIC PSORIASIS, UNSPECIFIED
[2020-02-13 07:51] LABS: HEMATOCRIT 37.9 % (32.4-45.2); MCH 29.4 pg (25.7-33.7); MCHC 34.3 g/dl (32.0-36.0); MEAN CELL VOLUME 85.9 fl (80-96); MEAN PLT VOLUME 8.9 fl (7.5-11.1); PLATELET COUNT 159 K/MM3 (134-434); RBC 4.41 M/mm3 (3.60-5.2); RDW 12.2 % (11.6-15.6); WHITE BLOOD COUNT 3.8 K/mm3 (4.0-10.8)
[2020-02-13 08:16] LABS: CALCIUM 8.4 mg/dl (8.5-10); CREATININE 0.9 mg/dl (0.55-1.3)
--- NOTE | 2020-02-13 09:16 | EKG ---
Test Reason : Blood Pressure : / mmHG Vent. Rate : 071 BPM Atrial Rate : 071 BPM P-R Int : 176 ms QRS Dur : 098 ms QT Int : 426 ms P-R-T Axes : 070 038 020 degrees QTc Int : 462 ms NORMAL SINUS RHYTHM NORMAL ECG WHEN COMPARED WITH ECG OF 08-JUL-2018 20:52, NO SIGNIFICANT CHANGE WAS FOUND Confirmed by MD JONY, JAD ([id number]) on 02/13/2020 9:16:02 AM Referred By: PILAR MARTINEZ Confirmed By:JAD BORGES MD
[2020-02-13] MEDS ORDERED: ALPRAZolam 1 MG TABLET PO PRN ×2 (09:24→09:36)
[2020-02-13] MEDS: LISINOPRIL 5 MG TABLET (FP) PO SCH (09:48)
--- NOTE | 2020-02-13 11:48 | CONSULT ---
Consult - text type - Consultation Consultation Note: NEUROLOGY CONSULTATION is greatly appreciated: This 64 yo RH m, woman with h/o HTN and Chol is maintained on atorvastatin, Lisinopril (2.5 mg), and triampterine. Occassional c/o lightheadedness with rapid standing. Yesterday AM began to "pull weeds" at 8 AM without breakfast or hydration. Then she began to mow the lawn but didn't finish and left mower outside but turned off. Called her at 9:30, confused. He arrived home and found her dressed in a dress (she was gardening in shorts and a bud) and confused. Pt still has no recollection of entering the house, calling her or changing her clothes. She recalls arriving in ER, CT scan , and all events since then. A very similar event occured last June. CT of head (reviewed): Normal MRI of Brain ( reviewed but not yet reported): Normal BRITTANY: BP 118/62. Yesterday had BP supine 138/68 -> 124/71 standing No external head trauma. No carotid bruits. Cor reg (80's0 NEURO: MS/Speech NORMAL! Recalls 3 of 3 @ 5 mins. No frontal release. CN II-XII: Normal Motor: No drift or tremor. Normal strength, tone and bulk. Normal reflexes. Toes downgoing. Coord: No FTN dystaxia Sensory: Normal. Romberg Neg Gait: Normal including tandem. IMP: Normal Neurological exam including cognition Transient Global Amnesia (TGA)- probably recurrent. Probably due to hypotension and transient cerebral hypoperfusion. SUGGEST: Follow orthostatic BP's. Telemetry/ Halter Decrease BP Meds if hypotensive. Keep well hydrated Neuro F/U/ EEG. Thank you very much, Jose M Parker MD
--- NOTE | 2020-02-13 15:03 | ECHO ---
Version: 1 Name: NEPTALI LYONS Exam: Adult Echocardiogram Study Date: 02/13/2020, 2:16 PM Age: 64 Years MMode/2D Measurements & Calculations IVSd: 1.06 cm LVIDs: 2.35 cm LVIDd: 4.0 cm LVPWd: 0.97 cm LVOT diam: 2.00 cm Ao root diam: 2.7 cm LA dimension: 3.0 cm Doppler Measurements & Calculations MV E max lambert: 111.8 cm/sec MV A max lambert: 88.5 cm/sec MV E/A: 1.26 Ao max P.4 mmHg Ao V2 max: 126.9 cm/sec Procedure The study was technically limited with all images being suboptimal in quality. Left Ventricle The left ventricular size, thickness and function are normal. Ejection Fraction = 65%. Left Ventricu lar Filling pattern is normal for age. Right Ventricle The right ventricle is normal in size and function. Atria Normal left and right atrial size and function. Mitral Valve The mitral valve leaflets appear normal. There is no evidence of stenosis, fluttering, or prolapse. There is trace mitral regurgitation. Tricuspid Valve The tricuspid valve is not well visualized, but is grossly normal. No tricuspid regurgitation. Aortic Valve The aortic valve is normal in structure and function. Pulmonic Valve The pulmonic valve is not well visualized. Great Vessels The aortic root is normal size. Normal aortic arch, descending and ascending aorta. Pericardium/Pleura There is no pericardial effusion. Summary Statements The study was technically limited with all images being suboptimal in quality. The left ventricular size, thickness and function are normal Ejection Fraction = 65%. Left Ventricular Filling pattern is normal for age. The right ventricle is normal in size and function. Normal left and right atrial size and function. The mitral valve leaflets appear normal. There is no evidence of stenosis, fluttering, or prolapse. There is trace mitral regurgitation. The tricuspid valve is not well visualized, but is grossly normal. No tricuspid regurgitation. The aortic valve is normal in structure and function. The pulmonic valve is not well visualized. The aortic root is normal size. Normal aortic arch, descending and ascending aorta There is no pericardial effusion. Paul Vernon 02/13/2020, 3:02 PM Ordering Physician: Darrell Harper Performed By: Sobia Nick
[2020-02-13] MEDS: DULoxetine HCL 30 MG CAPSULE.DR PO SCH (21:46)
[2020-02-13] MEDS ORDERED: ATORVASTATIN CA 20 MG TABLET (FP) PO SCH (22:00)
[2020-02-13] MEDS ORDERED: ASPIRIN 325 MG ENTERIC COATED TABLET (FP) PO ONE ×2 (22:03→22:30)
[2020-02-13] MEDS ORDERED: ATORVASTATIN CA 40 MG TABLET (FP) PO SCH (22:04)
[2020-02-13] MEDS ORDERED: ASPIRIN 325 MG TABLET ONE (22:26)
[2020-02-14] MEDS ORDERED: PT OWN MED DRAWER 7, Y5N ONE (09:13)
[2020-02-14] MEDS: LISINOPRIL 5 MG TABLET (FP) PO SCH (09:28)
[2020-02-14] MEDS ORDERED: ASPIRIN 81 MG CHEWABLE TABLETS PO SCH (10:00)
[2020-02-14 14:33] VITALS: BP 126/62; PULSE 60; TEMP 97.9
--- NOTE | 2020-02-14 15:29 | DS ---
Physical Examination Vital Signs: Vital Signs Temperature 97.9 F 02/14/20 14:00 Pulse Rate 60 02/14/20 14:00 Respiratory Rate 18 02/14/20 14:00 Blood Pressure 126/62 02/14/20 14:00 O2 Sat by Pulse Oximetry (%) 99 02/14/20 14:00 Cardiovascular: Yes: Regular Rate and Rhythm Respiratory: Yes: Regular, CTA Bilaterally Gastrointestinal: Yes: Normal Bowel Sounds, Soft. No: Tenderness Neurological: Yes: Alert, Oriented Labs: CBC, BMP 02/13/20 07:37 02/13/20 07:37 Discharge Summary Problems reviewed: Yes Reason For Visit: TRANSIENT ALTERATION OF AWARENESS Current Active Problems Transient alteration of awareness (Acute) Hospital Course: - Problems (1) Transient alteration of awareness Assessment/Plan: MRI OF HEAD--acute/subacute cva--microvascular changes carotid--mild plaque lipitor/asa NEURO CONSULT Noted Code(s): R40.4 - TRANSIENT ALTERATION OF AWARENESS (2) HTN (hypertension) Assessment/Plan: MONITOR On altace 2.5 Code(s): I10 - ESSENTIAL (PRIMARY) HYPERTENSION (3) Psoriatic arthritis per rheumotology Code(s): L40.50 - ARTHROPATHIC PSORIASIS, UNSPECIFIED Condition: Fair - Instructions Referrals: Nate Quintana MD [Staff Physician] - 1 Week Disposition: HOME - Home Medications Comprehensive Discharge Medication List: Ambulatory Orders Adalimumab [Humira Pen] 60 mg SQ ASDIR 08/01/15 Acetaminophen [Tylenol .Regular Strength -] 650 mg PO Q4H PRN tablet 02/14/20 Aspirin [ASA -] 81 mg PO DAILY tab.chew 02/14/20 Atorvastatin Ca [Lipitor] 40 mg PO HS #30 tablet 02/14/20 Lisinopril [Prinivil] 2.5 mg PO DAILY #30 tablet 02/14/20
== END 2020-02-14 17:00 | disposition home or self-care (01) | DRG 884 ==
LOC: FER 10:23 → FM/S 12:19 → OBSVTOIN 02-14 06:50
PROVIDERS: ADMIT Family Medicine; ATTEND Family Medicine
DX: R40.4 Transient alteration of awareness (principal); G45.4 Transient global amnesia; I10 Essential (primary) hypertension; L40.50 Arthropathic psoriasis, unspecified; F41.9 Anxiety disorder, unspecified
CPT/HCPCS: 36415; 70450-TC; 70551-TC; 71045-TC-FY; 80048; 80053; 80061; 81003; 82550; 82607; 83036; 83735; 84443; 84484; 85025; 85027; 85610; 85730; 93005; 93306-TC; 93880-TC; 97116-GP; 97161-GP; 99291; G0378; U0003

== ENCOUNTER 2020-04-14 20:31 | Emergency (ER) | payer OTHER ==
[2020-04-14 20:38] VITALS: BP 139/76; PULSE 74; TEMP 98; BMI 27.1
--- OUTSIDE RECORDS SUMMARY | 2020-04-14 21:18 | XMS ---
:1955 Author Organization [facility] Care Team Providers Name Role Phone Jigar Camarillo Unavailable Androne, C Unavailable Androne, C Unavailable Androne, C Unavailable Androne, C Unavailable Androne, C Unavailable Androne, C Unavailable Androne, C Unavailable MD Kinsey Unavailable Unavailable Re-disclosure Warning The records that you are about to access may contain information from federally- assisted alcohol or drug abuse programs. If such information is present, then the following federally mandated warning applies: This information has been disclosed to you from records protected by federal confidentiality rules (42 CFR part 2). The federal rules prohibit you from making any further disclosure of this information unless further disclosure is expressly permitted by the written consent of the person to whom it pertains or as otherwise permitted by 42 CFR part 2. A general authorization for the release of medical or other information is NOT sufficient for this purpose. The Federal rules restrict any use of the information to criminally investigate or prosecute any alcohol or drug abuse patient.The records that you are about to access may contain highly sensitive health information, the redisclosure of which is protected by Article 27-F of the [facility] Public Health law. If you continue you may haveaccess to information: Regarding HIV / AIDS; Provided by facilities licensed or operated by the [facility] Office of Mental Health; or Provided by the [facility] Office for People With Developmental Disabilities. If such information is present, then the following [facility] mandated warning applies: This information has been disclosed to you from confidential records which are protected by state law. State law prohibits you from making any further disclosure of this information without the specific written consent of the person to whom it pertains, or as otherwise permitted by law. Any unauthorized further disclosure in violation of state law may result in a fine or residential sentence or both. A general authorization for the release of medical or other information is NOT sufficient authorization for further disclosure. Allergies and Adverse Reactions Type Description Substance Reaction Status Data Source(s ) Drug allergy No Known Allergies No Known NO KNOWN ALLERG Cammy Bee Allergies Hospital Encounters Encounter Providers Location Date Indications Data Source(s ) Attender: Jigar 02/28/2020 [facility] ([facility] 12:00:00 AM EDT Medical, ) Office Attender: Jigar Camarillo 02/28/2020 12:00:00 AM EDT [facility] ([facility], ) Office Attender: Jigar Camarillo 02/28/2020 12:00:00 AM EDT [facility] ([facility], ) Office Attender: Jigar Camarillo 02/28/2020 12:00:00 AM EDT [facility] ([facility], ) Office Attender: Jigar Camarillo 02/28/2020 12:00:00 AM EDT [facility] ([facility], ) Office Emergency Attender: Alfredo 11/13/2018 10:36:00 [facility] AD PAINCammy MD PM EDT - 11/14/2018 [facility] 02:01:00 AM EDT [facility], [facility] Immunizations Vaccine Date Status Description Data Source(s) IIV3. This is one of 04/20/2017 completed [facility] (Maulik's two codes replacing CVX 12:00:00 AM EDT [facility]) 15, which is being retired. Medications Medication Brand Start Product Dose Route Administrative Pharmacy [facility] Indications Reaction Description Data Name Date Form Instructions Instructions Source(s) Hydrochloro HYDROC 12/24/ TABLET 30 complet HYDR OCHLOROT [facility] (St thiazide 25 HLOROT 2020 ed HIAZIDE-TRI A [facility] MG / HIAZID 12:00: MTERENE Medical, Triamterene E-TRIA 00 AM PC) 37.5 MG MTEREN EDT Oral Tablet E:3108 HYDROCHLORO 12 THIAZIDE-TR IAMTERENE:3 32856 duloxetine DULOXE 11/18/ DELAYED 30 complet DULO XETINE [facility] (St 60 MG CLIF:5 2020 RELEASE ed Benjaímn's Delayed 94396 12:00: CAPSULE Medica l, Release 00 AM PC) Oral EDT Capsule DULOXETINE: 932457 Clobetasol CLOBET 11/18/ GEL 1 complet CLOBETA MCKENNA [facility] (St Propionate ASOL 2020 ed TOPICAL Benjam[facility]'s 0.0005 TOPICA 12:00: Medical, MG/MG L:8614 00 AM PC) Topical Gel 34 EDT CLOBETASOL TOPICAL:861 434 Clobetasol CLOBET 04/25/ GEL 1 complet CLOBETA MCKENNA [facility] (St Propionate ASOL 2019 ed PROPIONATE Pravin n's 0.0005 PROPIO 12:00: Medical, MG/MG MEGHANA:8 00 AM PC) Topical Gel 63658 EDT CLOBETASOL PROPIONATE: 328070 0.8 ML HUMIRA complet HUMIRA MEDG EN (St adalimumab :42287 2018 ed Benjam[facility]'s 50 MG/ML 5 12:00: Medical, Prefilled 00 AM PC) Syringe EDT [Humira] HUMIRA:[id number] Insurance Providers Payer name Policy type Policy ID Covered Covered democrat's Policy P adela / Coverage democrat ID relationship to Tamayo Inf ormation type tamayo GYPSY [id number] SP [id number] 1 HEALTH PLANS GYPSY (O) [id number] GYPSY [id number] PT [id number] 1 HEALTH PLAN O GYPSY [id number] SP [id number] 1 HEALTH PLANS ALEK CROSS [id number] PT [id number] [facility] LIANG [id number] PT [id number] OTHER GYPSY [id number] PT [id number] HEALTH PLAN O ORTHONET [id number] SP [id number] Problems, Conditions, and Diagnoses Code Display Name Description Problem Type Effective Data Dates Source(s) E87.1 Hypo-osmolality HYPO-OSMOLALITY Problem 02/28/2020 [facility] (St and hyponatremia AND HYPONATREMIA 12:00:00 AM [facility], ) E78.5 Hyperlipidemia, HYPERLIPIDEMIA, Problem 02/28/2020 MED[facility] EN (St unspecified UNSPECIFIED 12:00:00 AM [facility], ) D72.819 Decreased white DECREASED WHITE Problem 02/28/2020 MED[facility] EN (St blood cell count, BLOOD CELL COUNT, 12:00:00 AM [facility] unspecified UNSPECIFIED [facility], ) R40.4 Transient TRANSIENT Problem 02/28/2020 [facility] (St alteration of ALTERATION OF 12:00:00 AM [facility] awareness AWARENESS 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, ) J32.9 Chronic sinusitis, CHRONIC SINUSITIS, Problem 9 [facility] (St unspecified UNSPECIFIED 12:00:00 AM [facility], ) J01.90 Acute sinusitis, ACUTE SINUSITIS, Problem 11/01/2018 ME DGEN (St unspecified UNSPECIFIED 12:00:00 AM [facility], ) Z71.89 Other specified OTHER SPECIFIED Problem 07/19/2018 MED[facility] EN (St counseling COUNSELING 12:00:00 AM [facility], ) R39.89 Other symptoms and OTHER SYMPTOMS AND Problem 8 [facility] (St signs involving SIGNS INVOLVING 12:00:00 AM [facility] the genitourinary THE GENITOURINARY T [facility], ) system SYSTEM I10 Essential ESSENTIAL Problem 02/24/2018 [facility] (St (primary) (PRIMARY) 12:00:00 AM [facility] hypertension HYPERTENSION EDT Medical, P C) R51 Headache HEADACHE Problem 12/20/2017 [facility] (St 12:00:00 AM [facility] EDT Medical, ) M54.2 Cervicalgia CERVICALGIA Problem 12/20/2017 [facility] (St 12:00:00 [facility], ) H53.9 Unspecified visual UNSPECIFIED VISUAL Problem 8 [facility] (St disturbance DISTURBANCE 12:00:00 AM [facility], ) L40.59 Other psoriatic OTHER PSORIATIC Problem 12/20/2017 MED[facility] EN (St arthropathy ARTHROPATHY 12:00:00 AM [facility], ) S09.8XXS Other specified OTHER SPECIFIED Problem 12/20/2017 MED[facility] (St injuries of head, INJURIES OF HEAD, 12:00:00 AM [facility] sequela SEQUELA EDT Medical, PC) S06.0X0D Concussion without CONCUSSION WITHOUT Problem 8 [facility] (St loss of LOSS OF 12:00:00 AM [facility] consciousness, CONSCIOUSNESS, EDT Medica l, ) subsequent SUBSEQUENT encounter ENCOUNTER Z76.0 Encounter for ENCOUNTER FOR Problem 12/05/2017 [facility] ( St issue of repeat ISSUE OF REPEAT 12:00:00 AM [facility] prescription PRESCRIPTION EDT Medical, P C) R51 Headache R51 Diagnosis 11/13/2018 [facility] 11:00:00 PM Hospital EDT E87.1 Hypo-osmolality E87.1 Diagnosis 11/13/2018 [facility] and hyponatremia 11:00:00 PM Hospita l EDT R20.2 Paresthesia of R20.2 Diagnosis 11/13/2018 [facility] 11:00:00 PM Hospital EDT Surgeries/Procedures Procedure Description Date Indications Data Source(s) OFFICE OUTPATIENT 02/28/2020 [facility] ([facility] VISIT 25 MINUTES 12:00:00 AM Medical, PC ) EDT Documentation of 02/28/2020 [facility] ([facility] current medications 12:00:00 AM Medical, PC) (procedure) EDT Documentation of 11/19/2019 [facility] ([facility] current medications 12:00:00 AM Medical, PC) (procedure) EDT Documentation of 11/19/2019 [facility] ([facility] current medications 12:00:00 AM Medical, PC) (procedure) EDT Documentation of 11/19/2019 [facility] ([facility] current medications 12:00:00 AM Medical, PC) (procedure) EDT Documentation of 11/19/2019 [facility] ([facility] current medications 12:00:00 AM Medical, PC) (procedure) EDT OFFICE OUTPATIENT 11/19/2019 [facility] ([facility] VISIT 15 MINUTES 12:00:00 AM Medical, PC ) EDT Documentation of 11/29/2018 [facility] ([facility] current medications 12:00:00 AM Medical, PC) (procedure) EDT Documentation of 11/29/2018 [facility] ([facility] current medications 12:00:00 AM Medical, PC) (procedure) EDT Documentation of 11/29/2018 [facility] ([facility] current medications 12:00:00 AM Medical, PC) (procedure) EDT Documentation of 11/29/2018 [facility] ([facility] current medications 12:00:00 AM Medical, PC) (procedure) EDT Documentation of 11/29/2018 [facility] ([facility] current medications 12:00:00 AM Medical, PC) (procedure) EDT Documentation of 11/29/2018 [facility] ([facility] current medications 12:00:00 AM Medical, PC) (procedure) EDT Documentation of 11/29/2018 [facility] ([facility] current medications 12:00:00 AM Medical, PC) (procedure) EDT Documentation of 11/29/2018 [facility] ([facility] current medications 12:00:00 AM Medical, PC) (procedure) EDT OFFICE OUTPATIENT 11/29/2018 [facility] ([facility] VISIT 15 MINUTES 12:00:00 AM Medical, PC ) EDT Computed tomography of Computed tomography 11/13/2018 [facility] head without contrast of head without 12:00:00 AM Hos pital contrast EDT Documentation of 11/01/2018 [facility] ([facility]ik's current medications 12:00:00 AM Medical, PC) (procedure) EDT Documentation of 11/01/2018 [facility] ([facility] current medications 12:00:00 AM Medical, PC) (procedure) EDT Documentation of 11/01/2018 [facility] ([facility] current medications 12:00:00 AM Medical, PC) (procedure) EDT Documentation of 11/01/2018 [facility] ([facility] current medications 12:00:00 AM Medical, PC) (procedure) EDT OFFICE OUTPATIENT 11/01/2018 [facility] ([facility] VISIT 15 MINUTES 12:00:00 AM Medical, PC ) EDT Documentation of 07/19/2018 [facility] ([facility] current medications 12:00:00 AM Medical, PC) (procedure) EST Documentation of 07/19/2018 [facility] ([facility] current medications 12:00:00 AM Medical, PC) (procedure) EST Documentation of 07/19/2018 [facility] ([facility] current medications 12:00:00 AM Medical, PC) (procedure) EST Documentation of 07/19/2018 [facility] ([facility] current medications 12:00:00 AM Medical, PC) (procedure) EST Documentation of 07/19/2018 [facility] ([facility] current medications 12:00:00 AM Medical, PC) (procedure) EST Documentation of 07/19/2018 [facility] ([facility] current medications 12:00:00 AM Medical, PC) (procedure) EST Documentation of 07/19/2018 [facility] ([facility] current medications 12:00:00 AM Medical, PC) (procedure) EST OFFICE OUTPATIENT 07/19/2018 [facility] ([facility] VISIT 15 MINUTES 12:00:00 AM Medical, PC ) EST Documentation of 02/24/2018 [facility] ([facility] current medications 12:00:00 AM Medical, PC) (procedure) EDT Documentation of 02/24/2018 [facility] ([facility] current medications 12:00:00 AM Medical, PC) (procedure) EDT Documentation of 02/24/2018 [facility] ([facility]ik's current medications 12:00:00 AM Medical, PC) (procedure) EDT Documentation of 02/24/2018 [facility] ([facility]ik's current medications 12:00:00 AM Medical, PC) (procedure) EDT Documentation of 02/24/2018 [facility] (Ma[facility]ik's current medications 12:00:00 AM Medical, PC) (procedure) EDT Documentation of 02/24/2018 [facility] ([facility] current medications 12:00:00 AM Medical, PC) (procedure) EDT OFFICE OUTPATIENT 02/24/2018 [facility] ([facility]'s VISIT 15 MINUTES 12:00:00 AM Medical, PC ) EDT Documentation of 12/20/2017 [facility] ([facility] current medications 12:00:00 AM Medical, PC) (procedure) EDT Documentation of 12/20/2017 [facility] ([facility] current medications 12:00:00 AM Medical, PC) (procedure) EDT SCREENING TEST VISUAL 12/20/2017 [facility] ([facility] ACUITY QUANTITATIVE 12:00:00 AM Medical, PC) BILAT EDT Documentation of 12/05/2017 [facility] ([facility] current medications 12:00:00 AM Medical, PC) (procedure) EDT Documentation of 12/05/2017 [facility] ([facility] current medications 12:00:00 AM Medical, PC) (procedure) EDT Documentation of 12/05/2017 [facility] ([facility] current medications 12:00:00 AM Medical, PC) (procedure) EDT Documentation of 12/05/2017 [facility] ([facility]'s current medications 12:00:00 AM Medical, PC) (procedure) EDT Documentation of 12/05/2017 [facility] ([facility]ik's current medications 12:00:00 AM Medical, PC) (procedure) EDT Documentation of 12/05/2017 [facility] (Ma[facility]ik's current medications 12:00:00 AM Medical, PC) (procedure) EDT Documentation of 12/05/2017 [facility] ([facility] current medications 12:00:00 AM Medical, PC) (procedure) EDT Documentation of 12/05/2017 [facility] (Ma[facility]ik's current medications 12:00:00 AM Medical, PC) (procedure) EDT Documentation of 12/05/2017 [facility] ([facility] current medications 12:00:00 AM Medical, PC) (procedure) EDT Documentation of 12/05/2017 [facility] (Ma[facility]ik's current medications 12:00:00 AM Medical, PC) (procedure) EDT OFFICE OUTPATIENT 12/05/2017 [facility] ([facility] VISIT 15 MINUTES 12:00:00 AM Medical, PC ) EDT Results ID Date Data Source [id number] 02/12/2020 12:25:00 PM EDT [facility] Name Value Range Interpretation Description Data Sup porting Code Source(s) Document(s ) SARS [facility] coronavirus 2 RNA This lab was ordered by HANY ignacio [facility] and reported by [facility]. ID Date Data Source [id number] 11/14/2018 12:01:00 AM [facility] Value Range Interpretation Description Data Sup porting Code Source(s) Document(s ) Aspartate 19 U/L 10-48 AST [facility] aminotransferase [facility] [Enzymatic Hospital activity/volume] in Serum or Plasma ID Date Data Source [id number] 11/14/2018 12:01:00 AM [facility] Value Range Interpretation Description Data Sup porting Code Source(s) Document(s ) Alanine 11 U/L 8-35 ALANINE [facility] aminotransferase TRANSFERASE [facility] [Enzymatic Hospital activity/volume] in Serum or Plasma ID Date Data Source [id number] 11/14/2018 12:01:00 AM [facility] Value Range Interpretation Description Data Sup porting Code Source(s) Document(s ) Alkaline 80 U/L 41-147 ALKALINE [facility] phosphatase PHOSPHATASE Hospital [Enzymatic activity/volum e] in Serum or Plasma ID Date Data Source [id number] 11/14/2018 12:01:00 AM [facility] Value Range Interpretation Description Data Sup porting Code Source(s) Document(s ) Bilirubin. 0.4 mg/dL 0.3-1.2 TOTAL [facility] total BILIRUBIN Hospital [Mass/volu me] in Serum or Plasma ID Date Data Source [id number] 11/14/2018 12:01:00 AM [facility] Value Range Interpretation Description Data Sup porting Code Source(s) Document(s ) Albumin/Gl 1.3 1.0-2.1 ALBUMIN/GLOBULI [facility] obulin N RATIO Hospital [Mass Ratio] in Serum or Plasma ID Date Data Source [id number] 11/14/2018 12:01:00 AM [facility] Name Value Range Interpretation Description Data Sup porting Code Source(s) Document(s ) Albumin 4.1 g/dL 3.4-4.8 ALBUMIN [facility] [Mass/volum Hospital e] in Serum or Plasma ID Date Data Source [id number] 11/14/2018 [facility] Name Value Range Interpretation Description Data Sup porting Code Source(s) Document(s ) Protein 7.3 g/dL 5.7-8.2 TOTAL PROTEIN [facility] [Mass/volum Hospital e] in Serum or Plasma ID Date Data Source [id number] 11/14/2018 12:01:00 AM [facility] Value Range Interpretation Description Data Sup porting Code Source(s) Document(s ) Calcium 8.6 mg/dL 8.3-10.6 CALCIUM [facility] [Mass/volum Hospital e] in Serum or Plasma ID Date Data Source [id number] 11/14/2018 12:01:00 AM [facility] Value Range Interpretation Description Data Sup porting Code Source(s) Document(s ) Urea 26.7 6.0-20.0 Above high normal BUN/CREATININE [facility] nitrogen/C [facility] [Mass Ratio] in Serum or Plasma ID Date Data Source [id number] 11/14/2018 12:01:00 AM [facility] Name Value Range Interpretation Description Data Sup porting Code Source(s) Document(s ) Creatinine 0.9 0.6-1.1 CREATININE [facility] [Mass/volume] mg/dL Hospital in Serum or Plasma ID Date Data Source [id number] 11/14/2018 12:01:00 AM [facility] Name Value Range Interpretation Description Data Sup porting Code Source(s) Document(s ) Urea 24 mg/dL 6-20 Above high normal BLOOD UREA [facility] nitrogen NITROGEN Hospital [Mass/volume ] in Serum or Plasma ID Date Data Source [id number] 11/14/2018 12:01:00 AM [facility] Value Range Interpretation Code Description Data Sharmaine rce(s) Supporting Document(s ) Anion gap in 13 6-18 ANION GAP [facility] Serum or [facility] Plasma ID Date Data Source [id number] 11/14/2018 12:01:00 AM [facility] Name Value Range Interpretation Description Data Sup porting Code Source(s) Document(s ) Carbon 30 mmol/L 23-31 CARBON DIOXIDE [facility] dioxide, Hospital total [Moles/vol ume] in Serum or Plasma ID Date Data Source [id number] 11/14/2018 12:01:00 AM [facility] Name Value Range Interpretation Description Data Sup porting Code Source(s) Document(s ) Chloride 91 mmol/L 98-107 Below low normal CHLORIDE [facility] [Moles/volum Hospital e] in Serum or Plasma ID Date Data Source [id number] 11/14/2018 12:01:00 AM [facility] Value Range Interpretation Description Data Sup porting Code Source(s) Document(s ) Potassium 3.9 3.5-5.3 POTASSIUM [facility] [Moles/volume mmol/L Hospital ] in Serum or Plasma ID Date Data Source [id number] 11/14/2018 12:01:00 AM [facility] Name Value Range Interpretation Description Data Sup porting Code Source(s) Document(s ) Sodium 130 136-145 Below low normal SODIUM [facility] [Moles/vol mmol/L Hospital ume] in Serum or Plasma ID Date Data Source [id number] 11/14/2018 12:01:00 AM [facility] Name Value Range Interpretation Description Data Sup porting Code Source(s) Document(s ) Glucose 100 mg/dL 74-106 GLUCOSE [facility] [Mass/volum Hospital e] in Serum or Plasma ID Date Data Source [id number] 11/14/2018 12:01:00 AM [facility] Value Range Interpretation Code Description Data Sharmaine rce(s) Supporting Document(s ) 0.0 % 0-0.2 NUCLEATED RBCS [facility] (AUTO DIFF%)DIS Hospital ID Date Data Source [id number] 11/14/2018 12:01:00 AM [facility] Value Range Interpretation Description Data Sup porting Code Source(s) Document(s ) Differential AUTOMATED DIFF TYPE [facility] cell count [facility] method - Blood ID Date Data Source [id number] 11/14/2018 12:01:00 AM [facility] Value Range Interpretation Description Data Sup porting Code Source(s) Document(s ) Immature 0.02 0-0.3 IMM GRANS [facility] granulocytes 10*3/uL (AUTO DIFF#) Hospital [#/volume] in Blood by Automated count ID Date Data Source [id number] 11/14/2018 12:01:00 AM [facility] Value Range Interpretation Description Data Sup porting Code Source(s) Document(s ) Basophils 0.02 0.0-0.1 BASOPHILS [facility] [#/volume] 10*3/uL (AUTO DIFF #) Hospital in Blood by Automated count ID Date Data Source [id number] 11/14/2018 12:01:00 AM [facility] Name Value Range Interpretation Description Data Sup porting Code Source(s) Document(s ) Eosinophils 0.12 0.0-0.6 EOSINOPHILS [facility] [#/volume] in 10*3/uL (AUTO DIFF #) [facility] Blood by Hospital Automated count ID Date Data Source [id number] 11/14/2018 12:01:00 AM [facility] Name Value Range Interpretation Description Data Sup porting Code Source(s) Document(s ) Monocytes 0.48 0.0-1.2 MONOCYTES [facility] [#/volume] 10*3/uL (AUTO DIFF #) Hospital in Blood by Automated count ID Date Data Source [id number] 11/14/2018 12:01:00 AM [facility] Name Value Range Interpretation Description Data Sup porting Code Source(s) Document(s ) Lymphocytes 1.87 1.2-3.5 LYMPHOCYTES [facility] [#/volume] in 10*3/uL (AUTO DIFF #) [facility] Blood by [facility] Automated count ID Date Data Source [id number] 11/14/2018 12:01:00 AM [facility] Value Range Interpretation Description Data Sup porting Code Source(s) Document(s ) Neutrophils 3.42 1.5-6.6 NEUTROPHILS [facility] [#/volume] in 10*3/uL (AUTO DIFF #) [facility] Blood by [facility] Automated count ID Date Data Source [id number] 11/14/2018 12:01:00 AM [facility] Value Range Interpretation Description Data Sup porting Code Source(s) Document(s ) Nucleated 0.0 % 0-0.2 NUCLEATED RBCS [facility] erythrocytes/1 (AUTO DIFF%) Hospital 00 leukocytes [Ratio] in Blood by Automated count ID Date Data Source [id number] 11/14/2018 12:01:00 AM [facility] Value Range Interpretation Description Data Sup porting Code Source(s) Document(s ) Immature 0.3 % 0-0.5 IMM GRANS (AUTO [facility] granulocytes/1 DIFF%) Hospital 00 leukocytes in Blood by Automated count ID Date Data Source [id number] 11/14/2018 12:01:00 AM EDT [facility] Name Value Range Interpretation Description Data Sup porting Code Source(s) Document(s ) Basophils/100 0.3 % 0-1.0 BASOPHILS (AUTO [facility] leukocytes in DIFF %) Hospital Blood by Automated count ID Date Data Source [id number] 11/14/2018 12:01:00 AM EDT [facility] Name Value Range Interpretation Description Data Sup porting Code Source(s) Document(s ) Eosinophils/10 2.0 % 0-6.0 EOSINOPHILS [facility] 0 leukocytes (AUTO DIFF %) Hospital in Blood by Automated count ID Date Data Source [id number] 11/14/2018 12:01:00 AM [facility] Name Value Range Interpretation Description Data Sup porting Code Source(s) Document(s ) Monocytes/100 8.1 % 4.0-12.0 MONOCYTES [facility] leukocytes in (AUTO DIFF %) Hospital Blood by Automated count ID Date Data Source [id number] 11/14/2018 12:01:00 AM [facility] Name Value Range Interpretation Description Data Sup porting Code Source(s) Document(s ) Lymphocytes/1 31.5 % 20.0-48. LYMPHOCYTES [facility] 00 leukocytes 0 (AUTO DIFF %) Hospital in Blood by Automated count ID Date Data Source [id number] 11/14/2018 12:01:00 AM [facility] Name Value Range Interpretation Description Data Sup porting Code Source(s) Document(s ) Neutrophils/1 57.8 % 40.0-75. NEUTROPHILS [facility] 00 leukocytes 0 (AUTO DIFF %) Hospital in Blood by Automated count ID Date Data Source [id number] 11/14/2018 12:01:00 AM EDT [facility] Name Value Range Interpretation Description Data Sup porting Code Source(s) Document(s ) Platelet 10.1 fL 9.6-12.8 MEAN PLATELET [facility] mean volume VOLUME Hospital [Entitic volume] in Blood by Automated count ID Date Data Source [id number] 11/14/2018 12:01:00 AM [facility] Name Value Range Interpretation Description Data Sup porting Code Source(s) Document(s ) Platelets 259 150-400 PLATELET COUNT [place] [#/volume] 10*3/uL Hospital in Blood by Automated count ID Date Data Source [id number] 11/14/2018 12:01:00 AM [facility] Name Value Range Interpretation Description Data Sup porting Code Source(s) Document(s ) Erythrocyte 12.6 % 11.5-14. RED CELL [facility] distribution 5 DISTRIBUTION [place] width [Ratio] WIDTH Hospital by Automated count ID Date Data Source [id number] 11/14/2018 12:01:00 AM [facility] Name Value Range Interpretation Description Data Sup porting Code Source(s) Document(s ) Erythrocyte mean 34.9 31.0-36. MEAN [facility] corpuscular g/dL 0 CORPUSCULAR [place] hemoglobin HGB CONCEN Hospital concentration [Mass/volume] by Automated count ID Date Data Source [id number] 11/14/2018 12:01:00 AM [facility] Value Range Interpretation Description Data Sup porting Code Source(s) Document(s ) Erythrocyte 29.7 pg 27.0-34. MEAN [facility] mean 0 CORPUSCULAR [place] corpuscular HEMOGLOBIN Hospital hemoglobin [Entitic mass] by Automated count ID Date Data Source [id number] 11/14/2018 12:01:00 AM [facility] Name Value Range Interpretation Description Data Sup porting Code Source(s) Document(s ) Erythrocyte 85.1 fL 80.0-96. MEAN [facility] mean 0 CORPUSCULAR [place] corpuscular VOLUME Hospital volume [Entitic volume] by Automated count ID Date Data Source [id number] 11/14/2018 12:01:00 AM [facility] Name Value Range Interpretation Description Data Sup porting Code Source(s) Document(s ) Hematocrit 37.0 % 35.0-45.0 HEMATOCRIT [place] [Volume Hospital Fraction] of Blood by Automated count ID Date Data Source [id number] 11/14/2018 12:01:00 AM [facility] Name Value Range Interpretation Description Data Sup porting Code Source(s) Document(s ) Hemoglobin 12.9 11.8-15. HEMOGLOBIN [place] [Mass/volume] g/dL 3 Hospital in Blood ID Date Data Source [id number] 11/14/2018 12:01:00 AM [facility] Value Range Interpretation Description Data Sup porting Code Source(s) Document(s ) Erythrocytes 4.35 3.80-5.1 RED BLOOD [facility] [#/volume] in 10*6/uL 0 CELL COUNT [facility] Blood by Hospital Automated count ID Date Data Source [id number] 11/14/2018 12:01:00 AM [facility] Value Range Interpretation Description Data Sup porting Code Source(s) Document(s ) Leukocytes 5.9 4.0-10.0 WHITE BLOOD [place] [#/volume] in 10*3/uL CELL COUNT [facility] Blood by Automated count Procedure Social History Code Duration Value Status Description Data Source(s ) Smoking 02/28/2020 Tobacco Status: completed Tobacco Status: MEDG EN (St 12:00:00 AM EDT Former smoker Former smoker [facility], Tobacco details: Tobacco details: PC ) Cigarettes Cigarettes Smoking Smoking History: History: 1-5 1-5 Years Daily Years Daily Smoking: < Smoking: < 1 Pack 1 Pack (smokes (smokes one one cigarret per cigarret per day.) Smoking Stop day.) Smoking Date: 2011 Stop Date: 2011 Drinks 1-2 Glasses Drinks 1-2 of wine with Glasses of wine dinner with dinner Smoking 02/28/2020 Unknown if ever completed Unknown if ever MEDG EN (St 12:00:00 AM EDT smoked smoked [facility] [place], ) Smoking Unknown if ever completed Unknown if ever [facility] [place] smoked smoked [facility] Vital Signs ID Date Data Source UNK Name Value Range Interpretation Code Description Data Source(s) Heart rate 63 /min 63 /min [facility] ([facility] [place] Respiratory rate 16 /min 16 /min [facility] ( [facility] [place] Body mass index 28.5 kg/m2 28.5 kg/m2 [facility] [place] [facility] [place] Diastolic blood 86 mm[Hg] 86 mm[Hg] [facility] (S [facility] [place]) Systolic blood 150 mm[Hg] 150 mm[Hg] MED[facility] ([facility] [place], [place]) Body weight 156 lb 156 lb [facility] ([facility] [place] Body height 62 in 62 in [facility] ([facility] [place] Heart rate 88 /min 88 /min [facility] ([facility] [place] Respiratory rate 12 /min 12 /min [facility] ( [facility] [place] Body temperature 97.9 F 97.9 F [facility] ( [facility] [place] Body mass index 29.3 kg/m2 29.3 kg/m2 [facility] [place] [facility] [place] Diastolic blood 80 mm[Hg] 80 mm[Hg] [facility] (S t [facility] [place]) Systolic blood 132 mm[Hg] 132 mm[Hg] MED[facility] ([facility] [place], [place]) Body weight 160 lb 160 lb [facility] ([facility] [place] Body height 62 in 62 in [facility] ([facility] [place] Heart rate 78 /min 78 /min [facility] ([facility] [place] Respiratory rate 14 /min 14 /min [facility] ( [facility] [place] Body temperature 98.3 F 98.3 F [facility] ( [facility] [place] Body mass index 30 kg/m2 30 kg/m2 [facility] [place] [facility] [place] Diastolic blood 86 mm[Hg] 86 mm[Hg] [facility] Systolic blood 140 mm[Hg] 140 mm[Hg] MEDGEN ([facility] [place] [place]) Body weight 164 lb 164 lb [facility] ([facility] [place] Body height 62 in 62 in [facility] ([facility] [place] Heart rate 74 /min 74 /min [facility] ([facility] [place] Respiratory rate 12 /min 12 /min [facility] ( [facility] [place] Body mass index 30 kg/m2 30 kg/m2 MED[facility] (S t (BMI) [Ratio] [facility] [place], ) Diastolic blood 80 mm[Hg] 80 mm[Hg] [facility] ([facility]) Systolic blood 128 mm[Hg] 128 mm[Hg] [facility] ([facility] [place] [place]) Body weight 164 lb 164 lb [facility] ([facility] [place] Body height 62 in 62 in [facility] ([facility] [place] Heart rate 76 /min 76 /min [facility] ([facility] [place] Respiratory rate 14 /min 14 /min [facility] ( [facility] [place] Body temperature 97.7 F 97.7 F [facility] ( [facility] [place] Body mass index 29.4 kg/m2 29.4 kg/m2 MED[facility] (S t (BMI) [Ratio] [facility] [place], ) Diastolic blood 81 mm[Hg] 81 mm[Hg] [facility] ([facility]) Systolic blood 131 mm[Hg] 131 mm[Hg] [facility] ([facility] [place] [place]) Body weight 161 lb 161 lb [facility] ([facility] [place] Body height 62 in 62 in [facility] ([facility] [place] Heart rate 77 /min 77 /min [facility] ([facility] [place] Respiratory rate 12 /min 12 /min [facility] ( [facility] [place] Inhaled oxygen 99 % 99 % MEDGEN ([facility], ) Body mass index 30.2 kg/m2 30.2 kg/m2 MEDGEN (S t (BMI) [Ratio] [facility] [place], ) Diastolic blood 90 mm[Hg] 90 mm[Hg] [facility] ([facility]) Systolic blood 140 mm[Hg] 140 mm[Hg] [facility] ([facility] [place] [place]) Body weight 165 lb 165 lb [facility] ([facility] [place] Body height 62 in 62 in [facility] ([facility] [place] Heart [facility] 76 /min 76 /min [facility] ([facility] [place] Respiratory rate 12 /min 12 /min [facility] ( [facility] [place] Body mass index 30.2 kg/m2 30.2 kg/m2 [facility] ([place] ([place]Ratio[place] [facility] [place] Diastolic blood 78 mm[Hg] 78 mm[Hg] [facility] ([facility]) Systolic blood 126 mm[Hg] 126 mm[Hg] [facility] ([facility] [place] [place]) Body weight 165 lb 165 lb [facility] ([facility] [place] Body height 62 in 62 in [facility] ([facility] [place]
[2020-04-14 21:34] LABS: EPITHELIAL CELLS MODERATE /hpf
[2020-04-14] MEDS ORDERED: PHENAZOPYRIDINE HCL 100 MG TABLET (FP) PO ONE (21:47)
[2020-04-14] MEDS ORDERED: CIPROFLOXACIN 500 MG TABLET (RESTRICTED TO ID) PO ONE (21:47)
[2020-04-14] MEDS ORDERED: PHENAZOPYRIDINE HCL 100 MG TABLET (FP) ONE (21:48)
[2020-04-14] MEDS ORDERED: CIPROFLOXACIN 250 MG TABLET (RESTRICTED TO ID) PO ONE (21:48)
--- NOTE | 2020-04-14 21:54 | PDOC ---
History of Present Illness - General Chief Complaint: Pain, Acute Stated Complaint: BURNING WITH URINATION PRESSURE Time Seen by Provider: 04/14/20 20:40 - History of Present Illness Initial Comments: This 64-year-old woman with a history of HTN and psoriatic arthritis presents with 1 day history of progressive dysuria, urinary frequency and hematuria. Patient reports kirit blood in urine during the last few times that she has voided this evening. She also has had increasing discomfort in the suprapubic area of her abdomen. She denies flank or back pain, nausea/vomiting, fever/chills. The patient has a history of cystitis in the past but denies upper tract UTI/pyelonephritis. Medications as noted below No known allergies Non-smoker/no history of daily alcohol/other recreational drug use PMD is Dr. Quintana Past History - Medical History Allergies/Adverse Reactions: Allergies Allergy/AdvReac Type Severity Reaction Status Date / Time No Known Allergies Allergy Verified 07/08/18 20:06 Home Medications: Ambulatory Orders Adalimumab [Humira Pen] 60 mg SQ ASDIR 08/01/15 Acetaminophen [Tylenol .Regular Strength -] 650 mg PO Q4H PRN tablet 02/14/20 Aspirin [ASA -] 81 mg PO DAILY tab.chew 02/14/20 Atorvastatin Ca [Lipitor] 40 mg PO HS #30 tablet 02/14/20 Lisinopril [Prinivil] 2.5 mg PO DAILY #30 tablet 02/14/20 Ciprofloxacin HCl [Cipro] 500 mg PO BID #6 tablet 04/14/20 Phenazopyridine HCl [Pyridium] 200 mg PO TID #6 tablet 04/14/20 COPD: No DVT: No HTN: Yes Kidney Stones: Yes Psychiatric Problems: Yes - Psycho-Social/Smoking History Smoking Status: Yes Smoking History: Never smoked Have you smoked in the past 12 months: No Number of Cigarettes Smoked Daily: 1 If you are a former smoker, when did you quit?: 2016 Information on smoking cessation initiated: No 'Breaking Loose' booklet given: 02/07/15 - Substance Abuse Hx (Audit-C & DAST Scrn) How often the patient has a drink containing alcohol: Never Score: In Men: 4 or > Positive; In Women: 3 or > Positive: 0 Screen Result (Pos requires Nsg. Audit-10AR): Negative In the last yr the pt used illegal drug/Rx for NonMed reason: No Score: Yes response is considered Positive: 0 Screen Result (Positive result requires Nsg. DAST-10): Negative Review of Systems - Review of Systems Able to Perform ROS?: Yes Comments:: 12 point review of systems is negative except for what is noted in the history of present illness *Physical Exam - Vital Signs Last Vital Signs Temp Pulse Resp BP Pulse Ox 98 F 74 16 139/76 100 04/14/20 20:35 04/14/20 20:35 04/14/20 20:35 04/14/20 20:35 04/14/20 20:35 - Physical Exam GENERAL: Adult female, alert and oriented x3, no acute distress HEAD: Normal with no signs of trauma. EYES: PERRLA, EOMI, sclera anicteric, conjunctiva clear. ENT: Ears normal, nares patent, oropharynx clear without exudates. Moist mucous membranes. NECK: Normal range of motion, supple without lymphadenopathy, JVD, or masses. LUNGS: Breath sounds equal, clear to auscultation bilaterally. No wheezes, and no crackles. HEART:Regular rate and rhythm, normal S1 and S2 without murmur, rub or gallop. ABDOMEN:.normal bowel sounds. Mild suprapubic tenderness no guarding or rebound.No masses No distention. EXTREMITIES: Normal range of motion, no edema. No clubbing or cyanosis. No erythema, or tenderness. NEUROLOGICAL: Cranial nerves II through XII grossly intact. Normal speech. No focal neurological deficits. MUSCULOSKELETAL: Back non-tender to palpation, no CVA tenderness SKIN: Warm, Dry, normal turgor, no rashes or lesions noted. ED Treatment Course - ADDITIONAL ORDERS Additional order review: Laboratory Results 04/14/20 20:48 Urine Color Yellow Urine Appearance Slightly Urine pH 7.0 Urine Protein Negative Urine Glucose (UA) Negative Urine Ketones Negative Urine Blood 3+ H Urine Nitrite Negative Urine Bilirubin Negative Urine Urobilinogen 0.2 Ur Leukocyte Esterase 1+ Urine RBC 20-40 Urine WBC 10-20 Ur Transition Epith Cell Moderate Urine Bacteria Few ED Progress Note - Progress Note Progress Note: As noted above, this 64-year-old woman with a history of hypertension and psoriatic arthritis presents with a 1 day history of worsening dysuria and hematuria. No other associated symptoms described. Exam as noted above with mild suprapubic tenderness but no back/ flank pain. Urinalysis positive for 3+ blood/1+LE. Microscopic shows 20-40 RBCs/10-20 WBCs/moderate epi/few bacteria Because of the patient's clear symptoms of dysuria and hematuria, her relative immunocompromise (on Humira for her psoriatic arthritis) will treat empirically for UTI and send sample for urine culture and sensitivity. Because of her risk of upper tract infection, will start ciprofloxacin 500 mg with first dose given here in the ER. Although 5-day course was planned, the patient was reluctant to use fluoroquinolone for this period of time secondary to the risk for spontaneous musculoskeletal injury. Therefore, 3-day course of 500 mg twice a day sent to her pharmacy. Patient was cautioned to return to the ER immediately or to see Dr. Quintana if she had any persistence of symptoms or if she developed back pain/nausea or vomiting/fever or chills. Discharge - Discharge Information Problems reviewed: Yes Clinical Impression/Diagnosis: UTI (urinary tract infection) Qualifiers: Urinary tract infection type: acute cystitis Hematuria presence: with hematuria Qualified Code(s): N30.01 - Acute cystitis with hematuria Condition: Stable Disposition: HOME - Additional Discharge Information Prescriptions: Ciprofloxacin HCl [Cipro] 500 mg PO BID #6 tablet Phenazopyridine HCl [Pyridium] 200 mg PO TID #6 tablet - Follow up/Referral Referrals: Nate Quintana MD [Primary Care Provider] - 1 week - Patient Discharge Instructions Patient Printed Discharge Instructions: Urinary Tract Infection Additional Instructions: Drink plenty of fluids Cipro 500 mg twice a day for 3 days Pyridium 200 mg 3 times a day for 2 days Return to ER immediately if you have fever, nausea/vomiting, back pain Follow-up with within 1 week - Post Discharge Activity
== END 2020-04-14 22:00 | disposition home or self-care (01) ==
LOC: FER 20:31
DX: N30.01 Acute cystitis with hematuria (principal)
CPT/HCPCS: 81003; 81015; 87086; 87186; 99284-25

== ENCOUNTER 2021-11-23 16:43 | Emergency (ER) | payer OTHER ==
[2021-11-23 16:58] VITALS: BP 118/58; PULSE 75; TEMP 98.2; BMI 24.7
[2021-11-23] MEDS ORDERED: ACETAMINOPHEN 500 MG TABLET (FP) PO ONE (17:23)
[2021-11-23] MEDS ORDERED: DIPHTH,PERTUSS(ACELL),TET 0.5 ML DISP.SYRIN IM ONE ×2 (17:23→17:33)
[2021-11-23] MEDS ORDERED: ACETAMINOPHEN 500 MG TABLET (FP) ONE (17:32)
[2021-11-23] MEDS ORDERED: ACETAMINOPHEN 325 MG TABLET (FP) ONE (17:33)
== END 2021-11-23 19:05 | disposition home or self-care (01) ==
LOC: FER 16:43
PROC: 3E0234Z Introduction of Serum, Toxoid and Vaccine into Muscle, Percutaneous Approach (ICD-10-PCS; principal; 2021-11-23)
DX: S62.660B Nondisplaced fracture of distal phalanx of right index finger, initial encounter for open fracture (principal); W28.XXXA Contact with powered lawn mower, initial encounter
CPT/HCPCS: 73140-TC-RT-FY; 90715; 99284-25

== ENCOUNTER 2024-04-27 04:13 | Day surgery (SDC) | payer OTHER ==
[2024-04-17 14:47] VITALS: BMI 28.1
[2024-04-27 11:30] VITALS: RESP 16; TEMP 97.9
[2024-04-27 12:26] VITALS: BP 132/60; PULSE 58
== END 2024-04-27 12:25 | disposition home or self-care (01) ==
LOC: JASU-ENDO 04:13
PROVIDERS: ATTEND Internal Medicine Gastroenterology
PROC: 0DB98ZX Excision of Duodenum, Via Natural or Artificial Opening Endoscopic, Diagnostic (ICD-10-PCS; 2024-04-27)
PROC: 0DB68ZX Excision of Stomach, Via Natural or Artificial Opening Endoscopic, Diagnostic (ICD-10-PCS; 2024-04-27)
PROC: 0DBK8ZX Excision of Ascending Colon, Via Natural or Artificial Opening Endoscopic, Diagnostic (ICD-10-PCS; principal; 2024-04-27 11:00)
DX: Z12.11 Encounter for screening for malignant neoplasm of colon (principal); D12.2 Benign neoplasm of ascending colon; K64.8 Other hemorrhoids; K29.50 Unspecified chronic gastritis without bleeding; K55.1 Chronic vascular disorders of intestine; R10.13 Epigastric pain
CPT/HCPCS: 88305-TC; 88342-TC